=== PATIENT | male | born 1950 | race Caucasian/White ===

== ENCOUNTER 2016-06-25 13:56 | Emergency (ER) | payer OTHER ==
[~2016-06-25 13:56] MED LIST: ASPCH81X PO; GLIM1TAB2 PO; INSDGI SC; LISI2.5T5 PO; OMEP10CA2 PO; PREG1CAP34 PO; SIMV5TAB2 PO
[2016-06-25 14:14] VITALS: TEMP 36.4; Ht 179.1 cm
[2016-06-25] MEDS ORDERED: SODIUM CHLORIDE 0.9% 1000ML 1,000 ML IV STA (14:19)
[2016-06-25] MEDS ORDERED: CEFTRIAXONE SOD INJ 1 GM ADDVIAL IV STA (14:19)
[2016-06-25 14:46] LABS: BASO % 0.2 %; BASO ABS # 0.03 K/uL (0-0.2); COMPLETE YES; EOS % 0.1 %; HEMATOCRIT 47.8 % (42-52); IG% 0.4 %; LYMPH ABS # 0.97 K/uL (1.2-3.4); MEAN CELL VOLUME 87.2 fL (80-100); MEAN CORPUSCULAR HEMOGLOBIN 31.6 pg (25-34); MEAN CORPUSCULAR HGB CONC 36.2 g/dl (32-36); MEAN PLATELET VOLUME 11.2 fL (7.4-10.4); MONO % 7.5 %; NEUT % 85.8 %; PLATELET COUNT 184 K/uL (130-400); RED BLOOD COUNT 5.48 M/uL (4.7-6.1); WHITE BLOOD COUNT 16.24 K/uL (4.8-10.8)
[2016-06-25 14:59] LABS: PARTIAL THROMBOPLASTIN RATIO 1.1; PROTHROMBIN TIME (PATIENT) 10.9 SECONDS (9.0-12.0)
--- NOTE | 2016-06-25 15:00 | DIAGNOSTIC IMAGING REPORT ---
CHEST ONE VIEW PORTABLE CLINICAL HISTORY: Evaluate Fever/Sepsis dyspnea COMPARISON STUDY: 09/13/2015 FINDINGS: The bones soft tissues and hemidiaphragms are normal. The cardiomediastinal silhouette is normal. The lungs are clear. The pulmonary vasculature is normal. IMPRESSION: Negative chest. Electronically signed by: Timothy Strauss M.D. 06/25/2016 2:59 PM Dictated Date/Time: 06/25/2016 2:58 PM
[2016-06-25 15:06] LABS: ALT/SGPT 29 U/L (12-78); AST/SGOT 19 U/L (15-37); BLOOD UREA NITROGEN 28 mg/dl (7-18); BUN/CREATININE RATIO 18.6 (10-20); CALCIUM 9.1 mg/dl (8.5-10.1); CARBON DIOXIDE 27 mmol/L (21-32); CHLORIDE 100 mmol/L (98-107); GLUCOSE 127 mg/dl (70-99); POTASSIUM 3.7 mmol/L (3.5-5.1); SODIUM 136 mmol/L (136-145)
[2016-06-25 15:09] VITALS: O2SAT 98
[2016-06-25 15:11] LABS: ALKALINE PHOSPHATASE 67 U/L (45-117); CKMB/CK RATIO 1.2 (0-3.0)
[2016-06-25] MEDS ORDERED: ZOLP5TAB PO (15:35)
[2016-06-25] MEDS ORDERED: PRLSR20 PO (15:35)
[2016-06-25] MEDS ORDERED: INSDGIPEN SC (15:35)
[2016-06-25] MEDS ORDERED: GLIM4TAB PO (15:35)
[2016-06-25] MEDS ORDERED: CHOL1TAB42 PO (15:35)
[2016-06-25] MEDS ORDERED: NORT50CA PO (15:35)
[2016-06-25] MEDS ORDERED: PREG200C PO (15:35)
[2016-06-25] MEDS ORDERED: SIMV40TA2 PO (15:35)
[2016-06-25] MEDS ORDERED: ASPI81TA28 PO (15:35)
[2016-06-25] MEDS ORDERED: LISI-729 PO (15:35)
[2016-06-25 16:28] LABS: URINE APPEARANCE CLEAR (CLEAR); URINE COLOR DK YELLOW; URINE EPITHELIAL CELL AUTO >30 /lpf (0-5); URINE NITRITE NEG (NEG); URINE PH 6.5 (4.5-7.5); URINE SPECIFIC GRAVITY 1.031 (1.000-1.030); UROBILINOGEN NEG (NEG); ZZUR CULT IF INDIC CLEAN CATCH NO
[2016-06-25 16:30] LABS: MANUAL MICROSCOPIC REQUIRED? NO; REVIEW REQ? NO
[2016-06-25 16:31] LABS: URINE BILIRUBIN NEG (NEG)
[2016-06-25] MEDS ORDERED: GLC/500 PO (17:16)
[2016-06-25] MEDS ORDERED: ONDA4TAB10 SL (17:17)
--- NOTE | 2016-06-25 17:17 | EMERGENCY ROOM VISIT NOTE ---
History Report prepared by Jorge: Kimberley Brennan Under the Supervision of: Dr. Franki Carr D.O. First contact with patient: 14:12 Chief Complaint: ILLNESS Stated Complaint: ILLNESS History of Present Illness The patient is a 66 year old male who presents to the Emergency Room with complaints of resolved sickness starting this morning. He reports that he went to [employer] this morning and got his favorite meal, but was unable to eat all of it like he normally does. He was then outside pumping gas in the cold when began to get chills. When he got home he still felt chills and then he felt nauseous and vomited. He then began to feel too hot and diaphoretic. He went to the doctor's office where they found he was febrile, tachycardic, and hypoxic. He was referred to the ED. He received some fluids on the way here. He is currently feeling better. He has not taken anything for his fever. He denies any cough beyond his normal cough, abdominal pain, SOB, or rashes. He reports that he had felt no symptoms over the past few days. He has a history of diabetes. Source of History: patient Onset: this morning Position: other (global) Quality: other (sickness) Timing: resolved Associated Symptoms: + chills, + fevers, + nausea, + vomiting, No SOB, No abdominal pain, No cough, No rash Review of Systems See HPI for pertinent positives & negatives. A total of 10 systems reviewed and were otherwise negative. Past Medical & Surgical Medical Problems: (1) Anxiety (2) BPH (benign prostatic hypertrophy) (3) CKD (chronic kidney disease), stage II (4) Depression (5) Diabetes (6) Diabetic retinopathy (7) DM type 2 (diabetes mellitus, type 2) (8) Dyslipidemia (9) Emphysema, unspecified (10) GERD (gastroesophageal reflux disease) (11) H/o ischemic colitis (12) H/O ulcerative colitis (13) HTN (hypertension) (14) Hyperparathyroidism, secondary renal (15) Meniere's disease (16) HAYDE (obstructive sleep apnea) (17) Peripheral neuropathy (18) Sepsis Surgical Problems: (1) H/O hemorrhoidectomy (2) History of back surgery (3) History of carpal tunnel surgery (4) History of cataract surgery (5) S/P inguinal hernia repair (6) S/p removal of rectal stricture (7) S/P shoulder surgery (8) S/P tonsillectomy (9) S/P trigger finger release Family History Cancer FATHER ( of kidney CA) Diabetes mellitus BROTHER SISTER Heart disease BROTHER (UT in 40s) Hypertension MOTHER Social History Smoking Status: Former Smoker Alcohol Use: none Drug Use: none Marital Status: Housing Status: lives with family Occupation Status: disabled Current/Historical Medications Scheduled Aspirin (Aspirin Ec), 81 MG PO DAILY Cholecalciferol (Vitamin D), 5,000 UNIT PO DAILY Glimepiride (Amaryl), 4 MG PO BIDM Insulin Glargine (Lantus Solostar), 72 UNITS SC DAILY Lisinopril (Zestril), 5 MG PO DAILY Metformin Hcl (Glucophage), 500 MG PO BID Nortriptyline (Pamelor), 50 MG PO HS Omeprazole (Prilosec), 20 MG PO GMG Ondasetron Odt (Zofran Odt), 4 MG SL Q6H Pregabalin (Lyrica), 200 MG PO BID Simvastatin (Zocor), 40 MG PO QPM Scheduled PRN Zolpidem Tartrate (Ambien), 5 MG PO HS PRN for Sleep Allergies Coded Allergies: No Known Allergies (Unverified , 03/01/16) Physical Exam Vital Signs Date Time Temp Pulse Resp B/P Pulse Ox O2 Delivery O2 Flow Rate FiO2 06/25/16 16:30 123/86 06/25/16 16:26 98 20 94 06/25/16 16:00 99/73 06/25/16 15:56 105 15 97 06/25/16 15:52 96/70 06/25/16 15:27 109 20 104/68 96 Nasal Cannula 2.0 06/25/16 15:26 110 15 97 06/25/16 15:13 104/68 06/25/16 15:09 98 Nasal Cannula 2.0 06/25/16 14:56 117 27 95 06/25/16 14:26 122 21 95 06/25/16 14:14 36.4 123 20 104/79 91 Room Air 06/25/16 14:14 121 06/25/16 14:01 104/79 Physical Exam CONSTITUTIONAL/VITAL SIGNS: Reviewed / noted above. GENERAL: Non-toxic in appearance. INTEGUMENTARY: Warm, dry, and [place]. No obvious infection in extremities or feet. HEAD: Normocephalic. EYES: without scleral icterus or trauma. ENT/OROPHARYNX: clear and moist. LYMPHADENOPATHY/NECK: Is supple without lymphadenopathy or meningismus. RESPIRATORY: Lungs clear and equal. CARDIOVASCULAR: Regular rate and rhythm. GI/ABDOMEN: Soft and nontender. No organomegaly or pulsatile mass. No rebound or guarding. Normal bowel sounds. EXTREMITIES: Warm and well perfused. BACK: No CVA tenderness. NEUROLOGICAL: Intact without focal deficits. PSYCHIATRIC: normal affect. MUSCULOSKELETAL: Normally developed with good muscle tone. Medical Decision & Procedures ER Provider Diagnostic Interpretation: X ray results and stated below per my interpretation and radiology interpretation. CHEST ONE VIEW PORTABLE CLINICAL HISTORY: Evaluate Fever/Sepsis dyspnea COMPARISON STUDY: 09/13/2015 FINDINGS: The bones soft tissues and hemidiaphragms are normal. The cardiomediastinal silhouette is normal. The lungs are clear. The pulmonary vasculature is normal. IMPRESSION: Negative chest. Electronically signed by: Timothy Strauss M.D. 06/25/2016 2:59 PM Dictated Date/Time: 06/25/2016 2:58 PM Laboratory Results 06/25/16 14:30 Red Blood Count 5.48, Mean Corpuscular Volume 87.2, Mean Corpuscular Hemoglobin 31.6, Mean Corpuscular Hemoglobin Concent 36.2, Mean Platelet Volume 11.2, Neutrophils (%) (Auto) 85.8, Lymphocytes (%) (Auto) 6.0, Monocytes (%) (Auto) 7.5, Eosinophils (%) (Auto) 0.1, Basophils (%) (Auto) 0.2, Neutrophils # (Auto) 13.95, Lymphocytes # (Auto) 0.97, Monocytes # (Auto) 1.21, Eosinophils # (Auto) 0.02, Basophils # (Auto) 0.03 06/25/16 14:30 Test 06/25/16 14:30 06/25/16 15:00 06/25/16 15:55 White Blood Count 16.24 K/uL (4.8-10.8) Red Blood Count 5.48 M/uL (4.7-6.1) Hemoglobin 17.3 g/dL (14.0-18.0) Hematocrit 47.8 % (42-52) Mean Corpuscular Volume 87.2 fL (80-100) Mean Corpuscular Hemoglobin 31.6 pg (25-34) Mean Corpuscular Hemoglobin Concent 36.2 g/dl (32-36) Platelet Count 184 K/uL (130-400) Mean Platelet Volume 11.2 fL (7.4-10.4) Neutrophils (%) (Auto) 85.8 % Lymphocytes (%) (Auto) 6.0 % Monocytes (%) (Auto) 7.5 % Eosinophils (%) (Auto) 0.1 % Basophils (%) (Auto) 0.2 % Neutrophils # (Auto) 13.95 K/uL (1.4-6.5) Lymphocytes # (Auto) 0.97 K/uL (1.2-3.4) Monocytes # (Auto) 1.21 K/uL (0.11-0.59) Eosinophils # (Auto) 0.02 K/uL (0-0.5) Basophils # (Auto) 0.03 K/uL (0-0.2) RDW Standard Deviation 45.1 fL (36.4-46.3) RDW Coefficient of Variation 14.2 % (11.5-14.5) Immature Granulocyte % (Auto) 0.4 % Immature Granulocyte # (Auto) 0.06 K/uL (0.00-0.02) Prothrombin Time 10.9 SECONDS (9.0-12.0) Prothromb Time International Ratio 1.0 (0.9-1.1) Activated Partial Thromboplast Time 27.5 SECONDS (21.0-31.0) Partial Thromboplastin Ratio 1.1 Anion Gap 9.0 mmol/L (3-11) Estimated GFR () 56.2 Estimated GFR (Non- 48.5 BUN/Creatinine Ratio 18.6 (10-20) Calcium Level 9.1 mg/dl (8.5-10.1) Total Bilirubin 0.8 mg/dl (0.2-1) Direct Bilirubin 0.2 mg/dl (0-0.2) Aspartate Amino Transf (AST/SGOT) 19 U/L (15-37) Alanine Aminotransferase (ALT/SGPT) 29 U/L (12-78) Alkaline Phosphatase 67 U/L (45-117) Total Creatine Kinase 208 U/L (39-308) Creatine Kinase MB 2.4 ng/ml (0.5-3.6) Creatine Kinase MB Ratio 1.2 (0-3.0) Troponin I < 0.015 ng/ml (0-0.045) Total Protein 7.8 gm/dl (6.4-8.2) Albumin 4.0 gm/dl (3.4-5.0) Lipase 84 U/L (73-393) Influenza Type A Antigen Neg for Influ A (NEG) Influenza Type B Antigen Neg for Influ B (NEG) Lactic Acid Level 1.5 mmol/L (0.4-2.0) Urine Color DK YELLOW Urine Appearance CLEAR (CLEAR) Urine pH 6.5 (4.5-7.5) Urine Specific [place] 1.031 (1.000-1.030) Urine Protein 1+ (NEG) Urine Glucose (UA) NEG (NEG) Urine Ketones TRACE (NEG) Urine Occult Blood NEG (NEG) Urine Nitrite NEG (NEG) Urine Bilirubin NEG (NEG) Urine Urobilinogen NEG (NEG) Urine Leukocyte Esterase TRACE (NEG) Urine WBC (Auto) 1-5 /hpf (0-5) Urine RBC (Auto) 0-4 /hpf (0-4) Urine Hyaline Casts (Auto) 10-30 /lpf (0-5) Urine Epithelial Cells (Auto) >30 /lpf (0-5) Urine Bacteria (Auto) NEG (NEG) Laboratory results as stated above per my review. Medications Administered Medications (Trade) Dose Ordered Sig/Cyndee Route Start Time Stop Time Status Last Admin Dose Admin Sodium Chloride (Nss 1000ml) 1,000 ml @ 999 mls/hr Q1H1M STAT IV 06/25/16 14:19 06/25/16 15:19 DC 06/25/16 15:00 999 MLS/HR Ceftriaxone Sodium (Rocephin Inj) 1 gm NOW STAT IV 06/25/16 14:19 06/25/16 14:21 DC 06/25/16 15:01 1 GM ECG Indication: tachycardia Rate (beats per minute): 119 Rhythm: sinus tachycardia Findings: no ectopy, other (no acute injury) ED Course 1415: Previous medical records were reviewed. The patient was evaluated in room C5. A complete history and physical examination was performed. 1419: Rocephin Inj 1 gm IV, NSS 1000 ml @ 999 mls/hr IV. 1700: On reevaluation, the patient is resting comfortably. I discussed the results and findings with the patient. He verbalized agreement of the treatment plan. He was discharged home. Medical Decision Differential includes viral illness, influenza, streptococcal pharyngitis, meningitis, pneumonia, sinusitis, UTI, pyelonephritis, otitis media. This is a 66-year-old male who presents to the ED with a chief complaint of not feeling well this morning after eating at [employer]. The patient developed nausea and vomiting as well as some subjective fevers and chills. The patient states he developed vomiting. He went to his PCPs office and was told that he had a fever and his heart rate was tachycardic and he was sent here for evaluation. He reports a history of diabetes and COPD. His initial heart rate here was 122. He was afebrile. He did not receive antipyretics. EMS gave him some IV fluids and IV Zofran. He states that his symptoms did seem to improve after this. His workup here included a CBC which revealed white blood cell count of 16. His BUN is 28. The creatinine is 1.5. Lactate was negative. Troponin is negative. Urine did not show infection. Flu swab was negative. Chest x-ray did not show acute disease. An EKG showed a sinus tach with a rate of 119. The patient was reassessed. He is feeling better. He denies having any sort of symptoms that would explain a fever or white blood cell count. He appears dehydrated. He was given a liter of normal saline IV. His tachycardia improved. The patient will be discharged on Zofran. He was given empiric Rocephin but there is no clear infection at this time. He denies any abdominal pains. He denies any rashes and no abnormalities with regards to the skin was discovered on exam. He denies any headaches or upper respiratory symptoms. Denies shortness of breath. The patient is felt to be stable for discharge. Impression Primary Impression: Nausea & vomiting Additional Impression: Dehydration Scribe Attestation The scribe's documentation has been prepared under my direction and personally reviewed by me in its entirety. I confirm that the note above accurately reflects all work, treatment, procedures, and medical decision making performed by me. Departure Information Dispostion Home / Self-Care Prescriptions Ondasetron Odt (ZOFRAN ODT) 4 Mg Tab 4 MG SL Q6H for Nausea, #15 TAB Prov: Franki Carr D.O. 06/25/16 Referrals Bowen Narayan M.D. (PCP) Patient Instructions My [facility] Additional Instructions Zofran: Allow one tablet to dissolve under the tongue every 6 hours as needed for nausea or vomiting. Return to the ED or follow-up with PCP if symptoms persist or worsen. Drink plenty of fluids. Problem Qualifiers
[2016-06-25 17:47] VITALS: BP 91/65; PULSE 97; O2SAT 94
[2016-06-26] MEDS ORDERED: CEFD300C2 PO (17:35)
== END 2016-06-25 17:49 | disposition home or self-care (01) ==
LOC: EDBD 13:56 → C.EDC 13:59
DX: E86.0 Dehydration (principal); R11.2 Nausea with vomiting, unspecified; E11.319 Type 2 diabetes mellitus with unspecified diabetic retinopathy without macular edema; I12.9 Hypertensive chronic kidney disease with stage 1 through stage 4 chronic kidney disease, or unspecified chronic kidney disease; N18.2 Chronic kidney disease, stage 2 (mild); E78.5 Hyperlipidemia, unspecified; F32.9 Major depressive disorder, single episode, unspecified; F41.9 Anxiety disorder, unspecified; K21.9 Gastro-esophageal reflux disease without esophagitis; N25.81 Secondary hyperparathyroidism of renal origin; J43.9 Emphysema, unspecified; G47.33 Obstructive sleep apnea (adult) (pediatric); Z87.19 Personal history of other diseases of the digestive system; Z98.890 Other specified postprocedural states; Z87.891 Personal history of nicotine dependence; Z79.82 Long term (current) use of aspirin; Z79.84 Long term (current) use of oral hypoglycemic drugs; Z79.4 Long term (current) use of insulin; Z79.899 Other long term (current) drug therapy; Z80.9 Family history of malignant neoplasm, unspecified; Z83.3 Family history of diabetes mellitus; Z82.49 Family history of ischemic heart disease and other diseases of the circulatory system

== ENCOUNTER 2016-06-26 15:38 | Emergency (ER) | payer OTHER ==
[~2016-06-26] VITALS: Ht 179.1 cm; Wt 114.3 kg
[~2016-06-26 15:38] MED LIST changes: -ASPCH81X PO; +ASPI81TA28 PO; +CHOL1TAB42 PO; +GLC/500 PO; -GLIM1TAB2 PO; +GLIM4TAB PO; -INSDGI SC; +INSDGIPEN SC; +LISI-729 PO; -LISI2.5T5 PO; +NORT50CA PO; -OMEP10CA2 PO; +ONDA4TAB10 SL; -PREG1CAP34 PO; +PREG200C PO; +PRLSR20 PO; +SIMV40TA2 PO; -SIMV5TAB2 PO; +ZOLP5TAB PO
[2016-06-26 15:40] VITALS: Ht 179.1 cm; Wt 114.3 kg
[2016-06-26] MEDS ORDERED: SODIUM CHLORIDE 0.9% 1000ML 1,000 ML IV ONE (16:00)
--- NOTE | 2016-06-26 16:10 | EMERGENCY ROOM VISIT NOTE ---
History Report prepared by Jorge: Lukas Davidson Under the Supervision of: Dr. Rober Evans D.O. First contact with patient: 15:44 Chief Complaint: ABNORMAL LABS Stated Complaint: ABD PAIN,FEVER,ABNORMAL LABS History of Present Illness The patient is a 66 year old male who presents to the Emergency Room with complaints of sudden positive blood culture results beginning one day prior to arrival. He currently rates his discomfort as a 2/10 in severity. The patient associates a nausea, headache, fever, slight increase in urination, and lower abdominal pain with today's symptoms. He notes he was seen in the ED yesterday for his symptoms that began last night, and he was referred to the ED after receiving a call about his blood culture results. The patient states he originally had eaten a steak sandwich yesterday from [employer], which he has eaten before. He notes he had a difficult time eating his meal, which is unusual for him. The patient states he continued to run errands by getting a tank of propane. He notes he was outside for approximately five minutes and began to experience chills. The patient states he returned home and could not become warm for 30-45 minutes. He notes he then began to feel nauseous and experienced vomiting. The patient states he went to his PCP yesterday, in which , he had a fever of 102 F and was tachycardic, so the office called an ambulance to bring him to the ED. He notes he took acetaminophen 1.5-2 hours ago. The patient denies a sore throat, runny nose, rash, chest pain, and diarrhea. 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 A total of 10 systems reviewed and were otherwise negative. Past Medical & Surgical Medical Problems: (1) Anxiety (2) Bacteremia (3) BPH (benign prostatic hypertrophy) (4) CKD (chronic kidney disease), stage II (5) Depression (6) Diabetes (7) Diabetic retinopathy (8) DM type 2 (diabetes mellitus, type 2) (9) Dyslipidemia (10) Emphysema, unspecified (11) GERD (gastroesophageal reflux disease) (12) H/o ischemic colitis (13) H/O ulcerative colitis (14) HTN (hypertension) (15) Hyperparathyroidism, secondary renal (16) Meniere's disease (17) HAYDE (obstructive sleep apnea) (18) Peripheral neuropathy (19) Sepsis (20) Weakness Surgical Problems: (1) H/O hemorrhoidectomy (2) History of back surgery (3) History of carpal tunnel surgery (4) History of cataract surgery (5) S/P inguinal hernia repair (6) S/p removal of rectal stricture (7) S/P shoulder surgery (8) S/P tonsillectomy (9) S/P trigger finger release Family History Cancer FATHER ( of kidney CA) Diabetes mellitus BROTHER SISTER Heart disease BROTHER ([place] in 40s) Hypertension MOTHER Social History Smoking Status: Never Smoker Alcohol Use: none Drug Use: none Marital Status: Housing Status: lives with family Occupation Status: disabled Current/Historical Medications Scheduled Aspirin (Aspirin Ec), 81 MG PO DAILY Cefdinir (Omnicef), 300 MG PO Q12H Cholecalciferol (Vitamin D), 5,000 UNIT PO DAILY Glimepiride (Amaryl), 4 MG PO BIDM Insulin Glargine (Lantus Solostar), 72 UNITS SC DAILY Lisinopril (Zestril), 5 MG PO DAILY Metformin Hcl (Glucophage), 500 MG PO BID Nortriptyline (Pamelor), 50 MG PO HS Omeprazole (Prilosec), 20 MG PO GMG Ondasetron Odt (Zofran Odt), 4 MG SL Q6H Pregabalin (Lyrica), 200 MG PO BID Simvastatin (Zocor), 40 MG PO QPM Scheduled PRN Zolpidem Tartrate (Ambien), 5 MG PO HS PRN for Sleep Allergies Coded Allergies: No Known Allergies (Unverified , 06/26/16) Physical Exam Vital Signs Date Time Temp Pulse Resp B/P Pulse Ox O2 Delivery O2 Flow Rate FiO2 06/26/16 18:24 70 123/79 94 06/26/16 17:39 76 148/92 98 Room Air 06/26/16 17:01 96 Room Air 06/26/16 16:30 37.1 77 16 139/84 95 Room Air 06/26/16 16:28 94 Room Air 06/26/16 15:40 36.6 83 20 142/93 96 Room Air Physical Exam GENERAL: Patient is awake, alert, comfortable, and non-anxious appearing. EYES: The conjunctivae are clear. The pupils are round and reactive. EARS, NOSE, MOUTH AND THROAT: The nose is without any evidence of any deformity. Mucous membranes are moist tongue is midline NECK: The neck is nontender and supple. RESPIRATORY: Normal respiratory effort is noted there is no evidence of wheezing rhonchi or rales CARDIOVASCULAR: Regular rate and rhythm noted there no murmurs rubs or gallops normal S1 normal S2 GASTROINTESTINAL: The abdomen is mildly distended but soft. There was suprapubic and right lower quadrant tenderness to palpation. No guarding or rigidity. MUSCULOSKELETAL/EXTREMITIES: There is no evidence of gross deformity full range of motion is noted in the hips and shoulders SKIN: Trace pedal edema bilaterally. There is no obvious evidence of any rash. There are no petechiae, pallor or cyanosis noted. NEUROLOGIC: Patient is awake alert and oriented x3. Medical Decision & Procedures ER Provider Diagnostic Interpretation: Radiology results as stated below per my review and radiologist interpretation: CHEST ONE VIEW PORTABLE CLINICAL HISTORY: Sepsis. Abdominal pain. COMPARISON STUDY: Chest radiograph June 25, 2016. FINDINGS: The patient is rotated. Cardiac size is within normal limits. There is no consolidation to suggest pneumonia and there is no evidence of pulmonary edema. No pneumothorax or pleural effusion is identified. IMPRESSION: No acute cardiopulmonary findings. Electronically signed by: Bo Wynne M.D. 06/26/2016 4:[address] OF THE ABDOMEN AND PELVIS WITH CONTRAST CLINICAL HISTORY: Upper abdominal pain and fever. COMPARISON STUDY: None. TECHNIQUE: Following IV administration of 93 mL of Optiray-320, axial images of the abdomen and pelvis were obtained from the lung bases to the proximal femurs. Images were reviewed in the axial, sagittal, and coronal planes. IV contrast was administered without complication. CT DOSE: 1125.24 mGy.cm FINDINGS: Heart is at the upper limits of normal for size. There is a small hiatal hernia. Fatty infiltration of the liver is noted. There is no biliary or pancreatic ductal dilatation. There is no peripancreatic or pericholecystic infiltration. No hydronephrosis is present. A 6 mm hypodense lesion within the midpole of the left kidney is too small to characterize but is likely benign. There is mild symmetric bilateral perinephric infiltration. There is no evidence for a bowel obstruction. The caliber and wall thickness of small and large bowel are normal. The appendix is not visualized. There is a small fat-containing umbilical hernia. No suspicious osseous lesions are present. There are postsurgical findings within the lumbar spine. IMPRESSION: 1. Mild symmetric bilateral perinephric infiltration, a nonspecific finding which could be correlated with urinalysis. 2. Fatty liver. 3. No bowel obstruction. Electronically signed by: Bo Wynne M.D. 06/26/2016 5:09 PM Laboratory Results 06/26/16 16:10 Red Blood Count 4.35, Mean Corpuscular Volume 89.0, Mean Corpuscular Hemoglobin 30.3, Mean Corpuscular Hemoglobin Concent 34.1, Mean Platelet Volume 10.8, Neutrophils (%) (Auto) 70.0, Lymphocytes (%) (Auto) 20.1, Monocytes (%) (Auto) 6.7, Eosinophils (%) (Auto) 2.5, Basophils (%) (Auto) 0.3, Neutrophils # (Auto) 6.23, Lymphocytes # (Auto) 1.79, Monocytes # (Auto) 0.60, Eosinophils # (Auto) 0.22, Basophils # (Auto) 0.03 06/26/16 16:10 Test 06/26/16 16:10 06/26/16 16:17 06/26/16 16:21 06/26/16 16:30 White Blood Count 8.91 K/uL (4.8-10.8) Red Blood Count 4.35 M/uL (4.7-6.1) Hemoglobin 13.2 g/dL (14.0-18.0) Hematocrit 38.7 % (42-52) Mean Corpuscular Volume 89.0 fL (80-100) Mean Corpuscular Hemoglobin 30.3 pg (25-34) Mean Corpuscular Hemoglobin Concent 34.1 g/dl (32-36) Platelet Count 175 K/uL (130-400) Mean Platelet Volume 10.8 fL (7.4-10.4) Neutrophils (%) (Auto) 70.0 % Lymphocytes (%) (Auto) 20.1 % Monocytes (%) (Auto) 6.7 % Eosinophils (%) (Auto) 2.5 % Basophils (%) (Auto) 0.3 % Neutrophils # (Auto) 6.23 K/uL (1.4-6.5) Lymphocytes # (Auto) 1.79 K/uL (1.2-3.4) Monocytes # (Auto) 0.60 K/uL (0.11-0.59) Eosinophils # (Auto) 0.22 K/uL (0-0.5) Basophils # (Auto) 0.03 K/uL (0-0.2) RDW Standard Deviation 47.3 fL (36.4-46.3) RDW Coefficient of Variation 14.5 % (11.5-14.5) Immature Granulocyte % (Auto) 0.4 % Immature Granulocyte # (Auto) 0.04 K/uL (0.00-0.02) Erythrocyte Sedimentation Rate 25 mm/hr (0-14) Prothrombin Time 10.1 SECONDS (9.0-12.0) Prothromb Time International Ratio 0.9 (0.9-1.1) Activated Partial Thromboplast Time 31.5 SECONDS (21.0-31.0) Partial Thromboplastin Ratio 1.2 Est Creatinine Clear Calc Drug Dose 73.3 ml/min Estimated GFR () 66.8 Estimated GFR (Non- 57.7 BUN/Creatinine Ratio 17.9 (10-20) Calcium Level 8.7 mg/dl (8.5-10.1) Magnesium Level 1.9 mg/dl (1.8-2.4) Total Bilirubin 0.3 mg/dl (0.2-1) Aspartate Amino Transf (AST/SGOT) 17 U/L (15-37) Alanine Aminotransferase (ALT/SGPT) 22 U/L (12-78) Alkaline Phosphatase 66 U/L (45-117) C-Reactive Protein 14.40 mg/dl (0-0.29) Total Protein 6.6 gm/dl (6.4-8.2) Albumin 3.2 gm/dl (3.4-5.0) Globulin 3.4 gm/dl (2.5-4.0) Albumin/Globulin Ratio 0.9 (0.9-2) Bedside Lactic Acid Venous 0.96 mmol/L (0.90-1.70) Bedside Hemoglobin 12.9 g/dl (14.0-18.0) Bedside Hematocrit 38 % (42-52) Bedside Sodium 139 mEq/L (135-144) Bedside Potassium 4.2 mEq/L (3.3-5.0) Bedside Chloride 102 mEq/L (101-112) Bedside Total CO2 23 mEq/l (24-31) Anion Gap 19.0 mmol/L (16-25) Bedside Blood Urea Nitrogen 23 mg/dl (7-18) Bedside Creatinine 1.1 mg/dl (0.6-1.3) Bedside Glucose (other) 214 mg/dl (70-99) Bedside Ionized Calcium (Jewell) 1.21 mmol/l (1.12-1.32) Urine Color YELLOW Urine Appearance CLEAR (CLEAR) Urine pH 5.5 (4.5-7.5) Urine Specific [place] 1.016 (1.000-1.030) Urine Protein NEG (NEG) Urine Glucose (UA) 1+ (NEG) Urine Ketones NEG (NEG) Urine Occult Blood NEG (NEG) Urine Nitrite NEG (NEG) Urine Bilirubin NEG (NEG) Urine Urobilinogen NEG (NEG) Urine Leukocyte Esterase NEG (NEG) Urine WBC (Auto) 0 /hpf (0-5) Urine RBC (Auto) 0-4 /hpf (0-4) Urine Hyaline Casts (Auto) 0 /lpf (0-5) Urine Epithelial Cells (Auto) 5-10 /lpf (0-5) Urine Bacteria (Auto) NEG (NEG) Laboratory results per my review. Medications Administered Medications (Trade) Dose Ordered Sig/Cyndee Route Start Time Stop Time Status Last Admin Dose Admin Sodium Chloride (Nss 1000ml) 1,000 ml @ 999 mls/hr Q1H1M ONCE IV 06/26/16 16:00 06/26/16 17:00 DC 06/26/16 16:25 999 MLS/HR Ceftriaxone Sodium (Rocephin Inj) 1 gm NOW STAT IV 06/26/16 17:09 06/26/16 17:10 DC 06/26/16 17:36 1 GM ED Course 1550: The patient was evaluated in room A4B. A complete history and physical examination were performed. 1600: Ordered Sodium Chloride 1,000 ml @ 999 mls/hr IV. 1709: Ordered Rocephin Inj 1 gm IV. 1738: Upon reevaluation, the patient is doing well. I discussed the results and treatment plan with him. He verbalized agreement of the treatment plan. The patient was discharged home. Medical Decision Differential diagnosis: Etiologies such as viral syndrome, otitis, pharyngitis, pneumonia, influenza, meningitis, urinary tract infection, sepsis, bacteremia, as well as others were entertained. Nursing notes reviewed. Patient's previous electronic medical records reviewed. The patient is a 66-year-old male who presented to the emergency department at our request. The patient had a positive blood culture which could be a contaminant but he had a significant fever as well as an elevated white blood cell count when the culture was drawn. The patient had an improvement of his white blood cell count. No other source of infection could be found. He was treated previously with a dose of IV Rocephin so this was repeated here in the emergency department. He was also treated with IV fluids. He was encouraged to rest and avoid any strenuous activity. He was encouraged to follow-up with his family doctor soon as possible return to the emergency department immediately symptoms change worsen or the need arises. Impression Primary Impression: Fever Scribe Attestation The scribe's documentation has been prepared under my direction and personally reviewed by me in its entirety. I confirm that the note above accurately reflects all work, treatment, procedures, and medical decision making performed by me. Departure Information Dispostion Home / Self-Care Prescriptions Cefdinir (OMNICEF) 300 Mg Cap 300 MG PO Q12H, #14 CAP Prov: Rober Evans, 06/26/16 Referrals Bowen Narayan M.D. (PCP) Forms HOME CARE DOCUMENTATION FORM, IMPORTANT VISIT INFORMATION, WORK / SCHOOL INSTRUCTIONS Patient Instructions ED Fever Control, My [facility] Additional Instructions Continue using Motrin and Tylenol as directed for fever and body aches. Continue all medications as prescribed. Follow-up with your family for reevaluation. Return to the emergency department immediately if symptoms change worsen or the need arises. Problem Qualifiers Primary Impression: Fever Fever type: unspecified Qualified Codes: R50.9 - Fever, unspecified
[2016-06-26 16:28] VITALS: O2SAT 94
[2016-06-26 16:30] VITALS: TEMP 37.1
[2016-06-26 16:33] LABS: ISTAT CREATININE 1.1 mg/dl (0.6-1.3); ISTAT HEMOGLOBIN 12.9 g/dl (14.0-18.0); ISTAT IONIZED CALCIUM 1.21 mmol/l (1.12-1.32)
[2016-06-26 16:41] LABS: BUN/CREATININE RATIO 17.9 (10-20); C-REACTIVE PROTEIN 14.4 mg/dl (0-0.29); CALCIUM 8.7 mg/dl (8.5-10.1); CREATININE 1.3 mg/dl (0.60-1.40); MAGNESIUM 1.9 mg/dl (1.8-2.4); POTASSIUM 4.2 mmol/L (3.5-5.1)
[2016-06-26 16:43] LABS: BASO % 0.3 %; BASO ABS # 0.03 K/uL (0-0.2); COMPLETE YES; EOS % 2.5 %; HEMATOCRIT 38.7 % (42-52); IG% 0.4 %; LYMPH % 20.1 %; LYMPH ABS # 1.79 K/uL (1.2-3.4); MEAN CORPUSCULAR HEMOGLOBIN 30.3 pg (25-34); MEAN CORPUSCULAR HGB CONC 34.1 g/dl (32-36); MEAN PLATELET VOLUME 10.8 fL (7.4-10.4); MONO % 6.7 %; PLATELET COUNT 175 K/uL (130-400); RED BLOOD COUNT 4.35 M/uL (4.7-6.1); WHITE BLOOD COUNT 8.91 K/uL (4.8-10.8)
[2016-06-26 16:44] LABS: ALB/GLOB RATIO 0.9 (0.9-2)
[2016-06-26] MEDS ORDERED: OPTIRAY 320 IV PRN (16:45)
--- NOTE | 2016-06-26 16:45 | DIAGNOSTIC IMAGING REPORT ---
CHEST ONE VIEW PORTABLE CLINICAL HISTORY: Sepsis. Abdominal pain. COMPARISON STUDY: Chest radiograph June 25, 2016. FINDINGS: The patient is rotated. Cardiac size is within normal limits. There is no consolidation to suggest pneumonia and there is no evidence of pulmonary edema. No pneumothorax or pleural effusion is identified. IMPRESSION: No acute cardiopulmonary findings. Electronically signed by: Bo Wynne M.D. 06/26/2016 4:44 PM Dictated Date/Time: 06/26/2016 4:43 PM
[2016-06-26 16:50] LABS: URINE APPEARANCE CLEAR (CLEAR); URINE BILIRUBIN NEG (NEG); URINE COLOR YELLOW; URINE NITRITE NEG (NEG); URINE PH 5.5 (4.5-7.5); URINE SPECIFIC GRAVITY 1.016 (1.000-1.030); UROBILINOGEN NEG (NEG); ZZUR CULT IF INDIC CLEAN CATCH NO
[2016-06-26 16:51] LABS: INR 0.9 (0.9-1.1); PARTIAL THROMBOPLASTIN RATIO 1.2; PROTHROMBIN TIME (PATIENT) 10.1 SECONDS (9.0-12.0)
[2016-06-26 17:08] LABS: MANUAL MICROSCOPIC REQUIRED? NO; REVIEW REQ? NO
[2016-06-26] MEDS ORDERED: CEFTRIAXONE SOD INJ 1 GM ADDVIAL IV STA (17:09)
--- NOTE | 2016-06-26 17:11 | DIAGNOSTIC IMAGING REPORT ---
CT OF THE ABDOMEN AND PELVIS WITH CONTRAST CLINICAL HISTORY: Upper abdominal pain and fever. COMPARISON STUDY: None. TECHNIQUE: Following IV administration of 93 mL of Optiray-320, axial images of the abdomen and pelvis were obtained from the lung bases to the proximal femurs. Images were reviewed in the axial, sagittal, and coronal planes. IV contrast was administered without complication. CT DOSE: 1125.24 mGy.cm FINDINGS: Heart is at the upper limits of normal for size. There is a small hiatal hernia. Fatty infiltration of the liver is noted. There is no biliary or pancreatic ductal dilatation. There is no peripancreatic or pericholecystic infiltration. No hydronephrosis is present. A 6 mm hypodense lesion within the midpole of the left kidney is too small to characterize but is likely benign. There is mild symmetric bilateral perinephric infiltration. There is no evidence for a bowel obstruction. The caliber and wall thickness of small and large bowel are normal. The appendix is not visualized. There is a small fat-containing umbilical hernia. No suspicious osseous lesions are present. There are postsurgical findings within the lumbar spine. IMPRESSION: 1. Mild symmetric bilateral perinephric infiltration, a nonspecific finding which could be correlated with urinalysis. 2. Fatty liver. 3. No bowel obstruction. Electronically signed by: Bo Wynne M.D. 06/26/2016 5:09 PM Dictated Date/Time: 06/26/2016 4:59 PM
[2016-06-26] MEDS ORDERED: CEFD300C2 PO (17:35)
[2016-06-26 18:24] VITALS: BP 123/79; PULSE 70; O2SAT 94
== END 2016-06-26 18:25 | disposition home or self-care (01) ==
LOC: C.EDB 15:39 → C.EDA 18:25
DX: R50.9 Fever, unspecified (principal); N40.0 Benign prostatic hyperplasia without lower urinary tract symptoms; N18.2 Chronic kidney disease, stage 2 (mild); E11.9 Type 2 diabetes mellitus without complications; E78.5 Hyperlipidemia, unspecified; I10 Essential (primary) hypertension; H81.09 Meniere's disease, unspecified ear; G47.33 Obstructive sleep apnea (adult) (pediatric); K21.9 Gastro-esophageal reflux disease without esophagitis; Z79.82 Long term (current) use of aspirin; Z83.3 Family history of diabetes mellitus; Z82.49 Family history of ischemic heart disease and other diseases of the circulatory system

== ENCOUNTER 2016-06-27 04:51 | Inpatient (IN) | payer OTHER ==
[~2016-06-27] VITALS: Ht 177.8 cm; Wt 110.1 kg
[~2016-06-27 04:51] MED LIST changes: +CEFD300C2 PO
[2016-06-27] MEDS ORDERED: SODIUM CHLORIDE 0.9% 1000ML 500 ML IV STA (05:06)
[2016-06-27] MEDS ORDERED: SODIUM CHLORIDE 0.9% 1000ML 1,000 ML IV STA (05:06)
[2016-06-27] MEDS ORDERED: ONDANSETRON INJ 2 MG/ML 2 ML VIAL IV STA (05:06)
--- NOTE | 2016-06-27 05:17 | EMERGENCY ROOM VISIT NOTE ---
History Report prepared by Jorge: Jersey Chen Under the Supervision of: Dr. Rashaad Sawyer M.D. First contact with patient: 05:01 Chief Complaint: ABDOMINAL PAIN Stated Complaint: WEAK,ABDOMINAL PAIN,CAN'T EAT-GOTTEN WORSE Nursing Triage Summary: patient seen here Tuesday and then told to return yesterday after + BC results. did new blood work and sent pt home again. States, "I feel worse tonight. I have pains across the stomach. I don't know what they were. I slept very little tonight...Bending over made me feel all the worse." pt reports some dizziness and continued nausea. denies vomiting. pt has been on clear liquid diet and some crackers for 2 days. History of Present Illness The patient is a 66 year old male who presents to the Emergency Room with complaints of worsening abdominal pain that began two days ago. The patient was seen in the ED twice in the past two days: Once two days ago, and once 1 day ago. His white blood cell count on the was 16 and 8 on the . His chemistry panels were unrevealing. His influenza test was negative. On the , he had 1 blood culture that was positive for gram positive cocci--this is why he came to the ED yesterday. He has had two negative chest x-rays. He had a CT abdomen and pelvis on the that showed perinephric infiltration of unknown significance. His urinalysis from the did not suggest evidence for infection. On the , he was diagnosed with nausea and vomiting and given Zofran. On the , he was diagnosed with a fever and placed on Omnicef. He states that after he left the hospital yesterday, he worsened. He denies any trouble urinating or passing stool. He notes that he is feeling much weaker and lightheaded. He denies any vomiting today as well. Source of History: patient Onset: today Position: abdomen Symptom Intensity: moderate Quality: other (shooting) Timing: worsening Associated Symptoms: + weakness, No diarrhea, No hematochezia, No melena, No urinary symptoms, No vomiting Note: He feels lightheaded. Review of Systems See HPI for pertinent positives & negatives. A total of 10 systems reviewed and were otherwise negative. Past Medical & Surgical Medical Problems: (1) Anxiety (2) Bacteremia (3) BPH (benign prostatic hypertrophy) (4) CKD (chronic kidney disease), stage II (5) Depression (6) Diabetes (7) Diabetic retinopathy (8) DM type 2 (diabetes mellitus, type 2) (9) Dyslipidemia (10) Emphysema, unspecified (11) GERD (gastroesophageal reflux disease) (12) H/o ischemic colitis (13) H/O ulcerative colitis (14) HTN (hypertension) (15) Hyperparathyroidism, secondary renal (16) Meniere's disease (17) HAYDE (obstructive sleep apnea) (18) Peripheral neuropathy (19) Sepsis (20) Weakness Surgical Problems: (1) H/O hemorrhoidectomy (2) History of back surgery (3) History of carpal tunnel surgery (4) History of cataract surgery (5) S/P inguinal hernia repair (6) S/p removal of rectal stricture (7) S/P shoulder surgery (8) S/P tonsillectomy (9) S/P trigger finger release Family History Cancer FATHER ( of kidney CA) Diabetes mellitus BROTHER SISTER Heart disease BROTHER ([place] in 40s) Hypertension MOTHER Social History Smoking Status: Never Smoker Alcohol Use: none Drug Use: none Marital Status: Housing Status: lives with family Occupation Status: disabled Current/Historical Medications Scheduled Aspirin (Aspirin Ec), 81 MG PO DAILY Cefdinir (Omnicef), 300 MG PO Q12H Cholecalciferol (Vitamin D), 5,000 UNIT PO DAILY Glimepiride (Amaryl), 4 MG PO BIDM Insulin Glargine (Lantus Solostar), 72 UNITS SC DAILY Lisinopril (Zestril), 5 MG PO DAILY Metformin Hcl (Glucophage), 500 MG PO BID Nortriptyline (Pamelor), 50 MG PO HS Omeprazole (Prilosec), 20 MG PO GMG Ondasetron Odt (Zofran Odt), 4 MG SL Q6H Pregabalin (Lyrica), 200 MG PO BID Simvastatin (Zocor), 40 MG PO QPM Scheduled PRN Zolpidem Tartrate (Ambien), 5 MG PO HS PRN for Sleep Allergies Coded Allergies: No Known Allergies (Unverified , 06/26/16) Physical Exam Vital Signs Date Time Temp Pulse Resp B/P Pulse Ox O2 Delivery O2 Flow Rate FiO2 4/2/17 07:33 65 20 144/98 96 Room Air 06/27/16 07:15 96 Room Air 06/27/16 07:00 63 18 146/93 91 Room Air 06/27/16 05:35 36.6 62 20 153/97 96 Room Air 06/27/16 04:53 36.6 70 18 171/105 98 Room Air Physical Exam GENERAL: Patient is in no acute distress. HEENT: No acute trauma, normocephalic atraumatic, mucous membranes moist, no nasal congestion, no scleral icterus. NECK: No stridor, no adenopathy, no meningismus, trachea is midline. LUNGS: Clear to auscultation bilaterally, no wheeze, no rhonchi, breath sounds equal. HEART: Without murmurs gallops or rubs, regular rate and rhythm. ABDOMEN: Soft, bilateral lower quadrant discomfort with palpation, bowel sounds positive, no hernias, no peritonitis. EXTREMITIES: No cyanosis or edema, full range of motion of all the joints without pain or difficulty, no signs for acute trauma. NEUROLOGIC: Oriented x 3, no acute motor or sensory deficits, no focal weakness. SKIN: No rash, no jaundice, no diaphoresis. Medical Decision & Procedures Laboratory Results 06/27/16 05:23 Red Blood Count 4.48, Mean Corpuscular Volume 87.5, Mean Corpuscular Hemoglobin 30.8, Mean Corpuscular Hemoglobin Concent 35.2, Mean Platelet Volume 10.4, Neutrophils (%) (Auto) 62.8, Lymphocytes (%) (Auto) 25.5, Monocytes (%) (Auto) 7.4, Eosinophils (%) (Auto) 3.2, Basophils (%) (Auto) 0.5, Neutrophils # (Auto) 3.92, Lymphocytes # (Auto) 1.59, Monocytes # (Auto) 0.46, Eosinophils # (Auto) 0.20, Basophils # (Auto) 0.03 06/27/16 05:23 Test 06/27/16 05:23 06/27/16 05:25 White Blood Count 6.24 K/uL (4.8-10.8) Red Blood Count 4.48 M/uL (4.7-6.1) Hemoglobin 13.8 g/dL (14.0-18.0) Hematocrit 39.2 % (42-52) Mean Corpuscular Volume 87.5 fL (80-100) Mean Corpuscular Hemoglobin 30.8 pg (25-34) Mean Corpuscular Hemoglobin Concent 35.2 g/dl (32-36) Platelet Count 182 K/uL (130-400) Mean Platelet Volume 10.4 fL (7.4-10.4) Neutrophils (%) (Auto) 62.8 % Lymphocytes (%) (Auto) 25.5 % Monocytes (%) (Auto) 7.4 % Eosinophils (%) (Auto) 3.2 % Basophils (%) (Auto) 0.5 % Neutrophils # (Auto) 3.92 K/uL (1.4-6.5) Lymphocytes # (Auto) 1.59 K/uL (1.2-3.4) Monocytes # (Auto) 0.46 K/uL (0.11-0.59) Eosinophils # (Auto) 0.20 K/uL (0-0.5) Basophils # (Auto) 0.03 K/uL (0-0.2) RDW Standard Deviation 46.4 fL (36.4-46.3) RDW Coefficient of Variation 14.4 % (11.5-14.5) Immature Granulocyte % (Auto) 0.6 % Immature Granulocyte # (Auto) 0.04 K/uL (0.00-0.02) Anion Gap 4.0 mmol/L (3-11) Est Creatinine Clear Calc Drug Dose 72.6 ml/min Estimated GFR () 66.8 Estimated GFR (Non- 57.7 BUN/Creatinine Ratio 12.7 (10-20) Lactic Acid Level 0.9 mmol/L (0.4-2.0) Calcium Level 8.8 mg/dl (8.5-10.1) Total Bilirubin 0.3 mg/dl (0.2-1) Aspartate Amino Transf (AST/SGOT) 20 U/L (15-37) Alanine Aminotransferase (ALT/SGPT) 25 U/L (12-78) Alkaline Phosphatase 50 U/L (45-117) Troponin I < 0.015 ng/ml (0-0.045) Total Protein 7.0 gm/dl (6.4-8.2) Albumin 3.3 gm/dl (3.4-5.0) Globulin 3.7 gm/dl (2.5-4.0) Albumin/Globulin Ratio 0.9 (0.9-2) Lipase 110 U/L (73-393) Urine Color YELLOW Urine Appearance CLEAR (CLEAR) Urine pH 6.0 (4.5-7.5) Urine Specific C[place]ield 1.009 (1.000-1.030) Urine Protein NEG (NEG) Urine Glucose (UA) NEG (NEG) Urine Ketones NEG (NEG) Urine Occult Blood NEG (NEG) Urine Nitrite NEG (NEG) Urine Bilirubin NEG (NEG) Urine Urobilinogen NEG (NEG) Urine Leukocyte Esterase NEG (NEG) Laboratory results reviewed by me. Medications Administered Medications (Trade) Dose Ordered Sig/Cyndee Route Start Time Stop Time Status Last Admin Dose Admin Sodium Chloride (Nss 1000ml) 500 ml @ 999 mls/hr Q31M STAT IV 06/27/16 05:06 06/27/16 05:36 DC 06/27/16 05:33 999 MLS/HR Ondansetron HCl 4 mg 4 mg NOW STAT IV 06/27/16 05:06 06/27/16 05:10 DC 06/27/16 05:33 4 MG Sodium Chloride (Nss 1000ml) 1,000 ml @ 200 mls/hr Q5H STAT IV 06/27/16 05:06 06/27/16 10:05 DC 06/27/16 05:33 200 MLS/HR Morphine Sulfate (MoRPHine SULFATE INJ) 4 mg Q15M PRN IV 06/27/16 06:15 07/11/16 06:14 06/27/16 06:23 4 MG Ceftriaxone Sodium 1 gm 1 gm NOW STAT IV 06/27/16 06:45 06/27/16 06:46 DC 06/27/16 07:14 1 GM Sodium Chloride (Nss 1000ml) 1,000 ml @ 100 mls/hr Q10H IV 06/27/16 08:01 07/27/16 08:00 06/27/16 12:11 100 MLS/HR Acetaminophen (Tylenol Tab) 650 mg Q4H PRN PO 06/27/16 08:15 07/27/16 08:14 06/27/16 11:50 650 MG Al Hydrox/Mg Hydrox/Simethicone (Maalox Max Susp) 15 ml Q4H PRN PO 06/27/16 08:15 5/2/17 08:14 06/27/16 12:42 15 ML Ondansetron HCl (Zofran Inj) 4 mg Q6H PRN IV 06/27/16 08:15 07/27/16 08:14 06/27/16 11:05 4 MG ECG Indication: abdominal pain Rate (beats per minute): 61 Rhythm: normal sinus Findings: LBBB (incomplete), no acute ischemic change, no ectopy ED Course 0501: The patient was evaluated in room B10. A complete history and physical exam was performed. 0506: Ordered Sodium Chloride 1000 ml @ 200 mls/hr IV, Zofran Inj 4 mg IV, Sodium Chloride 500 ml @ 999 mls/hr IV 0615: Ordered Morphine Sulfate 4 mg IV 0645: Ordered Rocephin Inj 1 gm IV 0650: Upon reexamination the patient is resting. I discussed results and treatment plan with the patient. He verbalizes agreement and understanding. The patient will be evaluated by Dr. Yue Tran, for further management. Medical Decision Differential diagnosis includes but is not limited to diverticulitis, bacteremia , sepsis, UTI, pyelonephritis, viral illness, dehydration, and renal failure. There is no leukocytosis or concerning anemia. No significant electrolyte abnormality, kidney failure, hepatitis or pancreatitis. Urinalysis does not show infection. Lactic acid level is not elevated making sepsis and bowel ischemia less likely. EKG showed a sinus rhythm, no acute ischemia. On exam, the patient was not febrile or toxic. The patient was given IV saline, IV Zofran and IV morphine. He was given IV ceftriaxone for the previous positive blood culture. The patient has been here 3 times in 3 days. It does appear that his white count is improving. On CT from a previous visit, there was evidence for some perinephric stranding of unknown significance. He does not feel well and is not doing well as an outpatient. I do think care in the hospital would be warranted. I cannot explain his entire presentation. His illness may be viral , he may have bacteremia. Hospital care is required. I spoke to the patient and case management. The on-call hospitalist was consulted. Consults Time Called: 0645 Consulting Physician: Dr. Yue Tran Returned Call: 0650 He will be evaluating the patient for further management. Impression Primary Impression: Weakness Additional Impressions: Fever Lower abdominal pain Positive blood cultures Scribe Attestation The scribe's documentation has been prepared under my direction and personally reviewed by me in its entirety. I confirm that the note above accurately reflects all work, treatment, procedures, and medical decision making performed by me. Departure Information Dispostion Being Evaluated By Hospitalist Referrals Bowen Narayan M.D. (PCP) Patient Instructions My [facility] Problem Qualifiers
[2016-06-27 05:51] LABS: URINE APPEARANCE CLEAR (CLEAR); URINE BILIRUBIN NEG (NEG); URINE COLOR YELLOW; URINE NITRITE NEG (NEG); URINE SPECIFIC GRAVITY 1.009 (1.000-1.030); UROBILINOGEN NEG (NEG); ZZUR CULT IF INDIC CLEAN CATCH NO
[2016-06-27 05:54] LABS: MANUAL MICROSCOPIC REQUIRED? NO; REVIEW REQ? NO
[2016-06-27 05:54] LABS: BASO % 0.5 %; BASO ABS # 0.03 K/uL (0-0.2); COMPLETE YES; EOS % 3.2 %; HEMATOCRIT 39.2 % (42-52); IG% 0.6 %; LYMPH % 25.5 %; LYMPH ABS # 1.59 K/uL (1.2-3.4); MEAN CELL VOLUME 87.5 fL (80-100); MEAN CORPUSCULAR HEMOGLOBIN 30.8 pg (25-34); MEAN CORPUSCULAR HGB CONC 35.2 g/dl (32-36); MEAN PLATELET VOLUME 10.4 fL (7.4-10.4); MONO % 7.4 %; NEUT % 62.8 %; PLATELET COUNT 182 K/uL (130-400); RED BLOOD COUNT 4.48 M/uL (4.7-6.1); WHITE BLOOD COUNT 6.24 K/uL (4.8-10.8)
[2016-06-27 06:01] LABS: ALT/SGPT 25 U/L (12-78); AST/SGOT 20 U/L (15-37); BLOOD UREA NITROGEN 17 mg/dl (7-18); BUN/CREATININE RATIO 12.7 (10-20); CALCIUM 8.8 mg/dl (8.5-10.1); CARBON DIOXIDE 30 mmol/L (21-32); CHLORIDE 107 mmol/L (98-107); GLUCOSE 151 mg/dl (70-99); POTASSIUM 4.2 mmol/L (3.5-5.1); SODIUM 141 mmol/L (136-145)
[2016-06-27 06:06] LABS: ALB/GLOB RATIO 0.9 (0.9-2); ALKALINE PHOSPHATASE 50 U/L (45-117)
[2016-06-27] MEDS ORDERED: MoRPHine SULFATE 4 MG/ML 1 ML CARP\\VIAL IV PRN (06:15)
[2016-06-27] MEDS ORDERED: CEFTRIAXONE SOD INJ 1 GM ADDVIAL IV STA (06:45)
[2016-06-27 07:15] VITALS: O2SAT 96; Ht 177.8 cm; Wt 110.1 kg
[2016-06-27] MEDS ORDERED: ZOLPIDEM TARTRATE 5 MG TAB PO PRN (08:15)
[2016-06-27] MEDS ORDERED: ALUMINUM/MAGNESIUM/SIMETH (MAALOX MAX) 30 ML UDC PO PRN (08:15)
[2016-06-27] MEDS ORDERED: MAGNESIUM HYDROXIDE SUSP 30 ML UDC PO PRN (08:15)
[2016-06-27] MEDS ORDERED: NITROGLYCERIN 0.4 MG SL PER TAB CHARGE SL PRN (08:15)
[2016-06-27] MEDS ORDERED: INSULIN GLARGINE SOLOSTAR 100 UNITS/ML 3 ML PEN SC SCH (09:00)
[2016-06-27] MEDS ORDERED: VANCOMYCIN CONSULT ACTIVE PRN (09:15)
[2016-06-27] MEDS ORDERED: VANCOMYCIN INJ 2,750 MG in SODIUM CHLORIDE 0.9% 500ML 500 ML IV ONE (09:30)
--- NOTE | 2016-06-27 10:04 | DIAGNOSTIC IMAGING REPORT ---
ABDOMEN 2VIEW W/PA CHEST RTN CLINICAL HISTORY: Lower abdominal pain. COMPARISON STUDY: 06/26/2016 FINDINGS: The erect chest reveals no free air. There is mild interstitial thickening.] Supine views the abdomen reveal postsurgical changes of the lumbar spine. There is a thoracolumbar scoliosis. There is scattered stool within the right colon. There are no abnormally dilated loops of large or small bowel. There are no transition zones indicate bowel obstruction. There are no calcification suspicious for renal calculi. IMPRESSION: No evidence of bowel obstruction. No evidence of free air. Electronically signed by: Chris Hayes M.D. 06/27/2016 10:03 AM Dictated Date/Time: 06/27/2016 10:02 AM
[2016-06-27 11:02] VITALS: BP 150/89; PULSE 61; TEMP 36.7; O2SAT 94
[2016-06-27] MEDS: ONDANSETRON INJ 2 MG/ML 2 ML VIAL IV PRN ×2 (11:05→17:39)
--- NOTE | 2016-06-27 11:06 | HISTORY & PHYSICAL EXAMINATION ---
DATE OF ADMISSION: 06/27/2016 CHIEF COMPLAINT: Fever and abdominal pain. HISTORY OF PRESENT ILLNESS: This is a 66-year-old male with past medical history significant for diabetes, hypertension, hyperlipidemia, COPD, past tobacco abuse, history of diabetic neuropathy, chronic kidney disease, baseline creatinine around 1.3, presents with fever and abdominal pain. The patient says last Wali he had nausea, vomiting and chills and fever. He went to see his primary care physician and was sent to the ER, where blood cultures were drawn and his blood workup was negative and he was discharged home and the next day he was was not feeling well when he came to the ER.One of the blood cultures draw the day prior was positive for gm positive cocci. He was francisco having abdominal pain. CT of the abdomen and pelvis was done which shows some nonspecific bilateral perinephric infiltrates. The patient was placed on Omnicef and discharged home, but comes back again because of feeling generalized weakness and increased lower abdominal pain, was nauseous but no vomiting, no diarrhea, no constipation. Normal bowel movement yesterday. Denies any chest pain, no shortness of breath, chronic cough. Has some mild headaches. He has some mild neck pain, but is able to move his neck. Currently, resting comfortably and hemodynamically stable. ALLERGIES: No known drug allergies. PAST MEDICAL HISTORY: As mentioned above. PAST SURGICAL HISTORY: Rectal stricture, foot surgery, appendectomy, hemorrhoidectomy, cataract surgery, carpal tunnel surgery, and back surgery. FAMILY HISTORY: Significant for diabetes. SOCIAL HISTORY: Past tobacco use several years ago. No alcohol and on disability. REVIEW OF SYSTEMS: As per HPI. Rest of review of systems negative. MEDICATIONS: The patient currently on glimepiride 4 mg p.o. b.i.d., metformin 500 mg p.o. b.i.d., Zofran 4 mg p.o. sublingual q. 6 hours p.r.n., Omnicef 300 mg p.o. q. 12 hours, aspirin 81 mg p.o. daily, vitamin D 5000 units p.o. daily, insulin Lantus 72 units daily, lisinopril 5 mg p.o. daily, nortriptyline 50 mg p.o. at bedtime, Omeprazole 20 mg p.o. daily, Lyrica 200 mg p.o. b.i.d., simvastatin 40 mg p.o. q.p.m., Ambien 5 mg p.o. at bedtime p.r.n. PHYSICAL EXAMINATION: GENERAL: The patient is of moderate built, not in distress. VITAL SIGNS: Temperature 36.6, pulse 65, respiratory rate 20, blood pressure 144/92, oxygen 96% room air. HEENT: No pallor, no icterus. Pupils equal, round, and reactive to light. Oral mucosa dry. NECK: No JVD or neck masses, no carotid bruits. CARDIOVASCULAR: S1, S2 heard, regular rate and rhythm, no murmur, no gallop. RESPIRATORY SYSTEM: Normal AP diameter. No accessory muscle use. No wheezing, no crackles. ABDOMEN: Soft, bowel sounds present. Some tenderness in the left lower quadrant and hypogastric region. No guarding, no rigidity. CENTRAL NERVOUS SYSTEM: Cranial nerves II-XII are grossly intact. Nonfocal. EXTREMITIES: No edema, no erythema. LABORATORY DATA: WBC 6.2, hemoglobin 13.8, hematocrit 39.2 platelets 182. Sodium 141, potassium 4.2, chloride 107, CO2 30, BUN 17, creatinine 1.3, serum glucose 151. Lactic acid 0.9, calcium 8.8, total bilirubin 0.3, AST 20, ALT 25, alkaline phosphatase 50. Troponin I less than 0.015. Lipase 110. Urinalysis negative. IMAGING DATA: CT scan of the abdomen and pelvis done with contrast yesterday shows mild asymmetric bilateral perinephric infiltration, and nonspecific findings , no bowel obstruction. Chest x-ray done yesterday on 06/26/2016 - no acute cardiopulmonary findings. EKG shows normal sinus rhythm with sinus arrhythmia at a rate of 61, incomplete bundle branch block, no acute ST changes seen. ASSESSMENT AND PLAN: This is a 66-year-old male presents with recent fever and abdominal pain. Fever. Currently afebrile. The blood cultures done on 06/25/2016 showing gram positive cocci. The patient has generalized weakness. Not feeling good. We will empirically start him on IV vancomycin and IV Rocephin. Urinalysis negative but as the recent CAT scan showed nonspecific perinephric infiltration Will get a renal ultrasound and follow the cultures. Monitor on the tele floor. 2. Abdominal pain. CAT scan with contrast done yesterday showed bilateral mild perinephric infiltrates, otherwise negative study. We will get a abdominal x ray. pain control and monitor with antibiotics as above. 3. Diabetes. Hold home oral p.o. meds. Continue his Lantus and place him on insulin sliding scale. Monitor his blood sugars. 4. Hypertension. Continue his lisinopril. 5. Hyperlipidemia. Continue statin. 6. Chronic obstructive pulmonary disease, currently stable. 7. Deep vein thrombosis prophylaxis, sequential compression devices and TEDs for now. 8. Disposition: Admit to tele floor. Expect to discharge home and follow with his family doctor. KRISTA
[2016-06-27] MEDS: MoRPHine SULFATE 2 MG/ML CARP IV PRN ×2 (11:08→15:49)
[2016-06-27] MEDS: ACETAMINOPHEN 325 MG TAB PO PRN (11:50)
[2016-06-27 12:00] VITALS: O2SAT 94
[2016-06-27] MEDS: INSULIN ASPART 100 UNITS/ML 3 ML PEN SC SCH ×3 (12:10→20:12)
[2016-06-27] MEDS: ASPIRIN 81 MG ECTAB PO SCH (12:11)
[2016-06-27] MEDS: INSULIN GLARGINE SOLOSTAR 100 UNITS/ML 3 ML PEN SC SCH (12:11)
[2016-06-27] MEDS: PREGABALIN 100 MG CAP PO SCH ×2 (12:11→20:23)
[2016-06-27] MEDS: CHOLECALCIFEROL 1000 INTER.UNIT TAB PO SCH (12:11)
[2016-06-27] MEDS: SODIUM CHLORIDE 0.9% 1000ML 1,000 ML IV SCH ×2 (12:11→19:20)
[2016-06-27] MEDS: LISINOPRIL 5 MG TAB PO SCH (12:12)
--- NOTE | 2016-06-27 13:36 | Pharmacy Progress Note ---
Pharmacy Antibiotic Consult Date of Service: Jun 27, 2016. Pharmacy Dosing Scope Pharmacy is consulted to initiate vancomycin IV dosing therapy, order appropriate labs and adjust drug dose/frequency. Subjective The patient is a 66 year old male admitted on Jun 27, 2016 at 08:19 with a positive blood culture from 06/25/16 (1 of 2 blood cultures) plus a history of abdominal pain and fatigue. Objective Height (Feet): 5 Height (Inches): 10.00 Weight (Kilograms): 114.000 Lab Results (24hrs): Laboratory Tests Test 06/27/16 05:23 BUN/Creatinine Ratio 12.7 Blood Urea Nitrogen 17 mg/dl Creatinine 1.30 mg/dl White Blood Count 6.24 K/uL Red Blood Count 4.48 M/uL Hemoglobin 13.8 g/dL Hematocrit 39.2 % Mean Corpuscular Volume 87.5 fL Mean Corpuscular Hemoglobin 30.8 pg Mean Corpuscular Hemoglobin Concent 35.2 g/dl Platelet Count 182 K/uL Mean Platelet Volume 10.4 fL Neutrophils (%) (Auto) 62.8 % Lymphocytes (%) (Auto) 25.5 % Monocytes (%) (Auto) 7.4 % Eosinophils (%) (Auto) 3.2 % Basophils (%) (Auto) 0.5 % Neutrophils # (Auto) 3.92 K/uL Lymphocytes # (Auto) 1.59 K/uL Monocytes # (Auto) 0.46 K/uL Eosinophils # (Auto) 0.20 K/uL Basophils # (Auto) 0.03 K/uL Micro Results: RUN DATE: 06/27/16 [facility] LAB PAGE 1 RUN TIME: 908 Specimen Inquiry PATIENT: JANINA MELENDREZ LOC: [facility] U # : [id number] AGE/SX: 66/M ROOM: REG : 06/25/[address]: Franki Carr D.O. : 1950 BED: DIS : STATUS: DEP [place] TLOC: SPEC #: [id number] JENNIFER: 06/25/16-1454 STATUS: RES REQ #: [id number] RECD: 06/25/16-[address]: Franki Carr D.O. SOURCE: BLOOD ENTR: 06/25/16-[address] [facility] [address]: Bowen Narayan M.D. [facility]: ORDERED: BLOOD CULTURE COMMENTS: Comments to Pigment Pumper SAME TIME DIFFERENT SITES Procedure Result Verified Site BLD CULT Preliminary 06/27/16-0909 Organism 1 COAG NEG STAPH NOT LUGDUNENSIS SENS NO SENSITIVITY TO FOLLOW Phoned Positive Blood Culture Gram Stain Report to [facility] ED on 06/26/16 At 1421 By CELESTE. Results were verbalized back to CELESTE. Assessment & Plan Loading dose: vancomycin 2750 mg (25 mg/kg) IV X 1 dose then: vancomycin 1700 mg IV every 12 hours (15 mg/kg/dose; population pharmacokinetics suggest a half-life of 11.5 hours with an elimination constant of 0.06 hr-1). Goal peak level estimate: between 35 - 40 mcg/mL. Goal trough level estimate: between 15 - 20 mcg/mL (indication bacteremia) No trough was ordered as empiric dosing was chosen (confirmed with Dr Estrada that this was okay). If dosing is extended please order additional troughs as necessary). Pharmacy will continue to follow and will adjust dose/frequency as necessary. Thank you
[2016-06-27 15:43] VITALS: BP 129/85; PULSE 60; TEMP 36.5; O2SAT 94
[2016-06-27 20:00] VITALS: BP 134/80; PULSE 62; TEMP 36.6; O2SAT 92
[2016-06-27] MEDS: NORTRIPTYLINE HCL 25 MG CAP PO SCH (20:23)
[2016-06-27] MEDS: SIMVASTATIN 40 MG TAB PO SCH (20:23)
[2016-06-27] MEDS: VANCOMYCIN INJ 1,700 MG in SODIUM CHLORIDE 0.9% 500ML 500 ML IV SCH (22:04)
[2016-06-27 23:30] VITALS: BP 138/75; PULSE 62; TEMP 36.9; O2SAT 94
[2016-06-28] VITALS (8 sets, daily range): BP systolic 142–157; BP diastolic 85–94; PULSE 54–63; TEMP 36.3–36.9; O2SAT 92–96
[2016-06-28] MEDS: ONDANSETRON INJ 2 MG/ML 2 ML VIAL IV PRN ×3 (02:25→15:36)
[2016-06-28] MEDS: MoRPHine SULFATE 2 MG/ML CARP IV PRN ×4 (02:25→18:46)
[2016-06-28] MEDS: SODIUM CHLORIDE 0.9% 1000ML 1,000 ML IV SCH ×2 (04:59→13:28)
[2016-06-28] MEDS ORDERED: CEFTRIAXONE SOD INJ 1 GM in DEXTROSE 5% ADD-VANTAGE 50ML 50 ML IV SCH (07:00)
[2016-06-28 07:04] LABS: BASO % 0.6 %; BASO ABS # 0.03 K/uL (0-0.2); COMPLETE YES; EOS % 4.9 %; HEMATOCRIT 38.3 % (42-52); IG% 0.4 %; LYMPH ABS # 1.59 K/uL (1.2-3.4); MEAN CELL VOLUME 88.2 fL (80-100); MEAN CORPUSCULAR HEMOGLOBIN 29.7 pg (25-34); MEAN CORPUSCULAR HGB CONC 33.7 g/dl (32-36); MEAN PLATELET VOLUME 9.9 fL (7.4-10.4); MONO % 8.7 %; NEUT % 55.4 %; PLATELET COUNT 178 K/uL (130-400); RED BLOOD COUNT 4.34 M/uL (4.7-6.1)
[2016-06-28] MEDS: ACETAMINOPHEN 325 MG TAB PO PRN ×2 (07:20→14:40)
[2016-06-28 07:47] LABS: BUN/CREATININE RATIO 9.8 (10-20); CALCIUM 8.6 mg/dl (8.5-10.1); CREATININE 1.2 mg/dl (0.60-1.40); MAGNESIUM 2.3 mg/dl (1.8-2.4); POTASSIUM 4.1 mmol/L (3.5-5.1)
[2016-06-28 07:49] LABS: ESTIMATED AVERAGE GLUCOSE 174 mg/dl; HA1C FLAG Normal (Normal)
[2016-06-28] MEDS: PREGABALIN 100 MG CAP PO SCH ×2 (08:06→20:47)
[2016-06-28] MEDS: CHOLECALCIFEROL 1000 INTER.UNIT TAB PO SCH (08:07)
[2016-06-28] MEDS: PANTOprazole SOD 40 MG TAB PO SCH (08:07)
[2016-06-28] MEDS: INSULIN ASPART 100 UNITS/ML 3 ML PEN SC SCH ×4 (08:07→20:41)
[2016-06-28] MEDS: ASPIRIN 81 MG ECTAB PO SCH (08:07)
[2016-06-28] MEDS: LISINOPRIL 5 MG TAB PO SCH (08:07)
[2016-06-28] MEDS: INSULIN GLARGINE SOLOSTAR 100 UNITS/ML 3 ML PEN SC SCH (08:13)
--- NOTE | 2016-06-28 09:17 | DIAGNOSTIC IMAGING REPORT ---
EXAMINATION: RENAL ULTRASOUND CLINICAL HISTORY: Abnormal CT scan with perinephric infiltrates COMPARISON STUDY: CT scan dated 06/26/2016 FINDINGS: The right kidney measures 9.3 cm. The left kidney measures 11.4 cm. There is no evidence of hydronephrosis. There are no renal masses. No bladder abnormalities are visualized. Bilateral ureteral jets were visualized. IMPRESSION : Normal renal ultrasound. Electronically signed by: Chris Hayes M.D. 06/28/2016 9:15 AM Dictated Date/Time: 06/28/2016 9:13 AM
[2016-06-28] MEDS: VANCOMYCIN INJ 1,700 MG in SODIUM CHLORIDE 0.9% 500ML 500 ML IV SCH ×2 (09:48→21:16)
--- NOTE | 2016-06-28 18:28 | Progress Note ---
Internal Med Progress Note Date of Service: Jun 28, 2016. Provider Documentation: SUBJECTIVE: Resting comfortably still has abdominal discomfort says till has some diarrhea afebrile ok to advance diet OBJECTIVE: Vital Signs-as noted below Exam: General-alert and oriented x 3 ENT-normal hearing Neck-no neck masses Lungs-cta b/l no wheezing no crackles Heart-s1 and s2 heard regular rate and rhythm no murmurs' Abdomen-soft bowel sounds present lower abdominal discomfort no distension Extremities-no edema no erythema Neuro-alert and awake moves extremities Lab data as noted below. ASSESSMENT & PLAN: This is a 66-year-old male presents with recent fever and abdominal pain. Fever. Currently afebrile. One of the blood cultures drawn on 06/25/16 was positive for gm positive cocci but final cx seems contamination repeat blood cx pending empirically on iv vancomycin and Rocephin. will d/c Rocephin will f/u repeat cx 2. Abdominal pain and diarrhea. CAT scan with contrast done yin ER on 06/26/16 showed bilateral mild perinephric infiltrates, otherwise negative study. abdominal x ray and renal u/s unremarkable UA negative. Will stop Rocephin. Mostly viral gastroenteritis. 3. Diabetes. Hold home oral p.o. meds. Continue his Lantus and place him on insulin sliding scale. Monitor his blood sugars. 4. Hypertension. Continue his lisinopril. 5. Hyperlipidemia. Continue statin. 6. Chronic obstructive pulmonary disease, currently stable. 7. Deep vein thrombosis prophylaxis, sequential compression devices and TEDs for now. DISPOSITION If stable will d/c in am. Vital Signs: Date Time Temp Pulse Resp B/P Pulse Ox O2 Delivery O2 Flow Rate FiO2 06/28/16 17:00 36.5 54 20 154/87 95 06/28/16 16:00 96 Room Air 06/28/16 12:00 Room Air 06/28/16 11:42 36.6 54 16 157/89 96 Room Air 06/28/16 08:00 Room Air 06/28/16 07:45 36.4 57 16 157/85 95 Room Air 06/28/16 04:00 Room Air 06/28/16 04:00 36.9 57 20 142/90 95 Room Air 06/28/16 00:00 Room Air 06/27/16 23:30 36.9 62 20 138/75 94 Room Air 06/27/16 20:00 Room Air 06/27/16 20:00 36.6 62 20 134/80 92 Room Air Lab Results: Results Past 24 Hours Test 06/27/16 19:53 06/28/16 06:16 06/28/16 07:08 06/28/16 11:15 Range/Units Bedside Glucose 131 88 79 70-99 mg/dl White Blood Count 5.30 4.8-10.8 K/uL Red Blood Count 4.34 4.7-6.1 M/uL Hemoglobin 12.9 14.0-18.0 g/dL Hematocrit 38.3 42-52 % Mean Corpuscular Volume 88.2 80-100 fL Mean Corpuscular Hemoglobin 29.7 25-34 pg Mean Corpuscular Hemoglobin Concent 33.7 32-36 g/dl Platelet Count 178 130-400 K/uL Mean Platelet Volume 9.9 7.4-10.4 fL Neutrophils (%) (Auto) 55.4 % Lymphocytes (%) (Auto) 30.0 % Monocytes (%) (Auto) 8.7 % Eosinophils (%) (Auto) 4.9 % Basophils (%) (Auto) 0.6 % Neutrophils # (Auto) 2.94 1.4-6.5 K/uL Lymphocytes # (Auto) 1.59 1.2-3.4 K/uL Monocytes # (Auto) 0.46 0.11-0.59 K/uL Eosinophils # (Auto) 0.26 0-0.5 K/uL Basophils # (Auto) 0.03 0-0.2 K/uL RDW Standard Deviation 46.4 36.4-46.3 fL RDW Coefficient of Variation 14.3 11.5-14.5 % Immature Granulocyte % (Auto) 0.4 % Immature Granulocyte # (Auto) 0.02 0.00-0.02 K/uL Sodium Level 142 136-145 mmol/L Potassium Level 4.1 3.5-5.1 mmol/L Chloride Level 107 98-107 mmol/L Carbon Dioxide Level 29 21-32 mmol/L Anion Gap 6.0 3-11 mmol/L Blood Urea Nitrogen 12 7-18 mg/dl Creatinine 1.20 0.60-1.40 mg/dl Est Creatinine Clear Calc Drug Dose 77.8 ml/min Estimated GFR () 73.6 Estimated GFR (Non- 63.5 BUN/Creatinine Ratio 9.8 10-20 Random Glucose 80 70-99 mg/dl Estimated Average Glucose 174 mg/dl Hemoglobin A1c 7.7 4.5-5.6 % Calcium Level 8.6 8.5-10.1 mg/dl Magnesium Level 2.3 1.8-2.4 mg/dl Test 06/28/16 15:30 06/28/16 15:51 Range/Units Bedside Glucose 89 82 70-99 mg/dl
[2016-06-28 20:14] LABS: INFLUENZA A PCR Neg for Influ A (NEG); INFLUENZA B PCR Neg for Influ B (NEG)
[2016-06-28] MEDS: SIMVASTATIN 40 MG TAB PO SCH (20:47)
[2016-06-28] MEDS ORDERED: ZOLPIDEM TARTRATE 5 MG TAB PO ONE (21:08)
[2016-06-28] MEDS: NORTRIPTYLINE HCL 25 MG CAP PO SCH (21:16)
[2016-06-29] VITALS (12 sets, daily range): BP systolic 121–167; BP diastolic 77–96; PULSE 60–67; TEMP 36.5–36.7; O2SAT 91–97
[2016-06-29] MEDS: SODIUM CHLORIDE 0.9% 1000ML 1,000 ML IV SCH ×3 (01:00→19:48)
[2016-06-29] MEDS: ONDANSETRON INJ 2 MG/ML 2 ML VIAL IV PRN (06:37)
[2016-06-29 08:02] LABS: BASO ABS # 0.05 K/uL (0-0.2); COMPLETE YES; EOS % 4.2 %; HEMATOCRIT 40.2 % (42-52); IG% 0.8 %; LYMPH % 27.4 %; LYMPH ABS # 1.42 K/uL (1.2-3.4); MEAN CELL VOLUME 88.7 fL (80-100); MEAN CORPUSCULAR HEMOGLOBIN 30.7 pg (25-34); MEAN CORPUSCULAR HGB CONC 34.6 g/dl (32-36); MEAN PLATELET VOLUME 10.2 fL (7.4-10.4); MONO % 7.9 %; NEUT % 58.7 %; PLATELET COUNT 190 K/uL (130-400); RED BLOOD COUNT 4.53 M/uL (4.7-6.1); WHITE BLOOD COUNT 5.19 K/uL (4.8-10.8)
[2016-06-29] MEDS: ACETAMINOPHEN 325 MG TAB PO PRN ×2 (08:02→19:06)
[2016-06-29] MEDS: CHOLECALCIFEROL 1000 INTER.UNIT TAB PO SCH (08:03)
[2016-06-29] MEDS: PANTOprazole SOD 40 MG TAB PO SCH (08:03)
[2016-06-29] MEDS: LISINOPRIL 5 MG TAB PO SCH (08:03)
[2016-06-29] MEDS: ASPIRIN 81 MG ECTAB PO SCH (08:03)
[2016-06-29] MEDS: PREGABALIN 100 MG CAP PO SCH ×2 (08:03→20:50)
[2016-06-29] MEDS: INSULIN ASPART 100 UNITS/ML 3 ML PEN SC SCH ×4 (08:07→20:44)
[2016-06-29] MEDS: INSULIN GLARGINE SOLOSTAR 100 UNITS/ML 3 ML PEN SC SCH (08:08)
[2016-06-29] MEDS: MoRPHine SULFATE 2 MG/ML CARP IV PRN (08:11)
[2016-06-29 08:31] LABS: BUN/CREATININE RATIO 9.9 (10-20); CREATININE 1.3 mg/dl (0.60-1.40); MAGNESIUM 2.1 mg/dl (1.8-2.4); POTASSIUM 4.4 mmol/L (3.5-5.1)
[2016-06-29] MEDS ORDERED: VANCOMYCIN INJ 1,700 MG in SODIUM CHLORIDE 0.9% 500ML 500 ML IV SCH (11:00)
--- NOTE | 2016-06-29 11:01 | Pharmacy Progress Note ---
Pharmacy Antibiotic Prog Note Date of Service: Jun 29, 2016. Subjective: The patient is a 66 year old male admitted on Jun 27, 2016 at 08:19 with a positive blood culture from 06/25/16 (1 of 2 blood cultures) plus a history of abdominal pain and fatigue. The patient is currently receiving Vancomycin 1700 mg IV every 12 hours. The patient is currently on day # 3 of Vancomycin IV therapy. Objective: Height (Feet): 5 Height (Inches): 10.00 Weight (Kilograms): 110.400 Lab Results (24hrs): Laboratory Tests Test 06/29/16 07:22 BUN/Creatinine Ratio 9.9 Blood Urea Nitrogen 13 mg/dl Creatinine 1.30 mg/dl White Blood Count 5.19 K/uL Red Blood Count 4.53 M/uL Hemoglobin 13.9 g/dL Hematocrit 40.2 % Mean Corpuscular Volume 88.7 fL Mean Corpuscular Hemoglobin 30.7 pg Mean Corpuscular Hemoglobin Concent 34.6 g/dl Platelet Count 190 K/uL Mean Platelet Volume 10.2 fL Neutrophils (%) (Auto) 58.7 % Lymphocytes (%) (Auto) 27.4 % Monocytes (%) (Auto) 7.9 % Eosinophils (%) (Auto) 4.2 % Basophils (%) (Auto) 1.0 % Neutrophils # (Auto) 3.05 K/uL Lymphocytes # (Auto) 1.42 K/uL Monocytes # (Auto) 0.41 K/uL Eosinophils # (Auto) 0.22 K/uL Basophils # (Auto) 0.05 K/uL Micro Results: Item Value Date Time Blood Culture - Preliminary Resulted 06/27/16 1115 Blood NO GROWTH TO DATE. Blood Culture - Preliminary Resulted 06/27/16 1110 Blood NO GROWTH TO DATE. Micro Results: RUN DATE: 06/27/16 [facility] LAB PAGE 1 RUN TIME: 908 Specimen Inquiry PATIENT: JANINA MELENDREZ LOC: [facility] # : [id number] AGE/SX: 66/M ROOM: REG : 06/25/[address]: Franki Carr D.O. : 1950 BED: DIS : STATUS: AUDRA OSBORNE TLOC: SPEC #: [id number] JENNIFER: 06/25/16 STATUS: RES REQ #: [id number] RECD: 06/25/16-[address]: Franki Carr D.O. SOURCE: BLOOD ENTR: 06/25/16-14[address] [facility] [address]: Bowen Narayan M.D. [facility]: ORDERED: BLOOD CULTURE COMMENTS: Comments to [employer] SAME TIME DIFFERENT SITES Procedure Result Verified Site BLD CULT Preliminary 06/27/16-0909 Organism 1 COAG NEG STAPH NOT LUGDUNENSIS SENS NO SENSITIVITY TO FOLLOW Phoned Positive Blood Culture Gram Stain Report to [facility] ED on 06/26/16 At 1421 By CELESTE. Results were verbalized back to CELESTE. Recent Pertinent Medications: Item Value Date Time Vancomycin HCl 534 ml @ 200 mls/hr 06/29/16 1100 1700 mg/Sodium Q12H/IV Chloride Assessment & Plan: [age] yo male receiving empiric IV after presenting with abdominal pain and single positive blood culture for coag negative Staph. Per provider note, DC empiric ceftriaxone and continue IV Vancomycin Continue Vancomycin 1700 mg (~15 mg/kg) IV every 12 hours. Goal peak level estimate: between 30 - 40 mcg/mL. Goal trough level estimate: between 15 - 20 mcg/mL. Vancomycin trough level has been ordered for: 06/30/16 prior to the 10 am dose. Pharmacy will continue to follow and will adjust dose/frequency as necessary. Thank you
--- NOTE | 2016-06-29 11:38 | Clinical Documentation Query ---
CLINICAL DOCUMENTATION QUERY 66 year old male who presents to the Emergency Room with complaints of worsening abdominal pain. H&P states history of CKD w/o staging. Documenting the stage of CKD will improve data integrity and will help clarify vague terms such as "renal insufficiency" or "chronic renal failure." In your clinical opinion is this patient being managed for: ( ) CKD stage 2 ( ) Other explanation of clinical findings (Please Explain) ( + ) Unable to determine (Please Define) ( ) Need to Discuss ( ) Not Agree CKD is documented in Chart Creatinine 1.5 in the past Normal now No staging done during this time The medical record reflects the following clinical findings, treatment, and risk factors. Clinical Indicators: BUN 12, Creatinine 1.20, GFR 63.5, Treatment: IVF's, daily PRP's, Risk Factors: Age Please clarify and document your clinical opinion in the progress notes and discharge summary. Terms such as "probable", "suspected", "likely", "questionable", "possible", or "still to be ruled out" are acceptable. IF IN AGREEMENT, YOU MUST DOCUMENT ABOVE DIAGNOSTIC STATEMENT IN DAILY PROGRESS NOTES AND DISCHARGE SUMMARY. This document is not part of the patient's record. Thank You, Arik Gutiérrez, MARTHA [phone]
--- NOTE | 2016-06-29 12:57 | Progress Note ---
Internal Med Progress Note Date of Service: Jun 29, 2016. Provider Documentation: SUBJECTIVE: says still feeling weak tolerated soft diet last night but says today again having lower abdominal pain had normal bowel movement yesterday afebrile no sob OBJECTIVE: Vital Signs-as noted below Exam: General-alert and oriented x 3 ENT-normal hearing Neck-no neck masses Lungs-cta b/l no wheezing no crackles Heart-s1 and s2 heard regular rate and rhythm no murmurs' Abdomen-soft bowel sounds present lower abdominal discomfort no distension Extremities-no edema no erythema Neuro-alert and awake moves extremities Lab data as noted below. ASSESSMENT & PLAN: This is a 66-year-old male presents with recent fever and abdominal pain. Fever. Currently afebrile. One of the blood cultures drawn on 06/25/16 was positive for gm positive cocci but final cx seems contamination repeat blood cx no growth empirically on iv vancomycin and Rocephin. stopped abx stable 2. Abdominal pain and diarrhea. CAT scan with contrast done yin ER on 06/26/16 showed bilateral mild perinephric infiltrates, otherwise negative study. abdominal x ray and renal u/s unremarkable UA negative. Will stop Rocephin. Etiology unclear. will f/u kub for any constipation. 3. Diabetes. Hold home oral p.o. meds. Continue his Lantus and place him on insulin sliding scale. Monitor his blood sugars. 4. Hypertension. Continue his lisinopril. 5. Hyperlipidemia. Continue statin. 6. Chronic obstructive pulmonary disease, currently stable. 7. Deep vein thrombosis prophylaxis, sequential compression devices and TEDs for now. DISPOSITION If stable will d/c in am. Vital Signs: Date Time Temp Pulse Resp B/P Pulse Ox O2 Delivery O2 Flow Rate FiO2 06/29/16 11:18 36.6 61 18 137/77 91 Room Air 06/29/16 09:15 36.5 67 18 157/79 95 Room Air 06/29/16 07:26 96 Room Air 06/29/16 07:21 36.6 60 18 151/85 96 Room Air 06/29/16 04:00 96 Room Air 06/29/16 03:38 36.7 60 20 143/86 96 Room Air 06/28/16 23:54 36.3 63 149/94 92 Room Air 06/28/16 23:54 92 Room Air 06/28/16 20:45 36.9 60 20 152/93 94 Room Air 06/28/16 20:00 96 Room Air 06/28/16 17:00 36.5 54 20 154/87 95 06/28/16 16:00 96 Room Air Lab Results: Results Past 24 Hours Test 06/28/16 15:30 06/28/16 15:51 06/28/16 20:40 06/29/16 07:22 Range/Units Bedside Glucose 89 82 92 70-99 mg/dl White Blood Count 5.19 4.8-10.8 K/uL Red Blood Count 4.53 4.7-6.1 M/uL Hemoglobin 13.9 14.0-18.0 g/dL Hematocrit 40.2 42-52 % Mean Corpuscular Volume 88.7 80-100 fL Mean Corpuscular Hemoglobin 30.7 25-34 pg Mean Corpuscular Hemoglobin Concent 34.6 32-36 g/dl Platelet Count 190 130-400 K/uL Mean Platelet Volume 10.2 7.4-10.4 fL Neutrophils (%) (Auto) 58.7 % Lymphocytes (%) (Auto) 27.4 % Monocytes (%) (Auto) 7.9 % Eosinophils (%) (Auto) 4.2 % Basophils (%) (Auto) 1.0 % Neutrophils # (Auto) 3.05 1.4-6.5 K/uL Lymphocytes # (Auto) 1.42 1.2-3.4 K/uL Monocytes # (Auto) 0.41 0.11-0.59 K/uL Eosinophils # (Auto) 0.22 0-0.5 K/uL Basophils # (Auto) 0.05 0-0.2 K/uL RDW Standard Deviation 45.6 36.4-46.3 fL RDW Coefficient of Variation 14.0 11.5-14.5 % Immature Granulocyte % (Auto) 0.8 % Immature Granulocyte # (Auto) 0.04 0.00-0.02 K/uL Sodium Level 141 136-145 mmol/L Potassium Level 4.4 3.5-5.1 mmol/L Chloride Level 105 98-107 mmol/L Carbon Dioxide Level 29 21-32 mmol/L Anion Gap 7.0 3-11 mmol/L Blood Urea Nitrogen 13 7-18 mg/dl Creatinine 1.30 0.60-1.40 mg/dl Est Creatinine Clear Calc Drug Dose 71.4 ml/min Estimated GFR () 66.8 Estimated GFR (Non- 57.7 BUN/Creatinine Ratio 9.9 10-20 Random Glucose 79 70-99 mg/dl Calcium Level 9.0 8.5-10.1 mg/dl Magnesium Level 2.1 1.8-2.4 mg/dl Test 06/29/16 07:36 06/29/16 11:28 Range/Units Bedside Glucose 77 116 70-99 mg/dl
--- NOTE | 2016-06-29 14:16 | DIAGNOSTIC IMAGING REPORT ---
KUB CLINICAL HISTORY: Abdominal pain. Constipation. COMPARISON STUDY: 06/27/2016 FINDINGS: There is no pathologic bowel dilatation. There is mild to mild fecal retention.. There is a thoracal lumbar scoliosis. There are postsurgical changes present within the lumbar spine. IMPRESSION: Mild fecal retention. No evidence of pathologic bowel dilatation. Electronically signed by: Chris Hayes M.D. 06/29/2016 2:14 PM Dictated Date/Time: 06/29/2016 2:13 PM
[2016-06-29] MEDS: NORTRIPTYLINE HCL 25 MG CAP PO SCH (20:49)
[2016-06-29] MEDS: SIMVASTATIN 40 MG TAB PO SCH (20:50)
[2016-06-29] MEDS ORDERED: ZOLPIDEM TARTRATE 5 MG TAB PO PRN (21:00)
[2016-06-30 04:22] VITALS: BP 169/95; PULSE 59; TEMP 36.6; O2SAT 97
[2016-06-30] MEDS: SODIUM CHLORIDE 0.9% 1000ML 1,000 ML IV SCH (05:50)
[2016-06-30 07:12] VITALS: BP 165/88; PULSE 62; TEMP 36.5; O2SAT 97
[2016-06-30 08:00] VITALS: O2SAT 97
[2016-06-30] MEDS: LISINOPRIL 5 MG TAB PO SCH (08:04)
[2016-06-30] MEDS: PANTOprazole SOD 40 MG TAB PO SCH (08:04)
[2016-06-30] MEDS: ASPIRIN 81 MG ECTAB PO SCH (08:04)
[2016-06-30] MEDS: CHOLECALCIFEROL 1000 INTER.UNIT TAB PO SCH (08:05)
[2016-06-30] MEDS: PREGABALIN 100 MG CAP PO SCH (08:06)
[2016-06-30 08:10] LABS: BASO % 0.9 %; BASO ABS # 0.05 K/uL (0-0.2); COMPLETE YES; EOS % 3.7 %; HEMATOCRIT 42.9 % (42-52); IG% 1.1 %; LYMPH % 24.1 %; LYMPH ABS # 1.29 K/uL (1.2-3.4); MEAN CELL VOLUME 88.3 fL (80-100); MEAN CORPUSCULAR HEMOGLOBIN 30.9 pg (25-34); MEAN PLATELET VOLUME 10.3 fL (7.4-10.4); MONO % 8.2 %; PLATELET COUNT 195 K/uL (130-400); RED BLOOD COUNT 4.86 M/uL (4.7-6.1); WHITE BLOOD COUNT 5.35 K/uL (4.8-10.8)
[2016-06-30] MEDS: INSULIN ASPART 100 UNITS/ML 3 ML PEN SC SCH ×2 (08:10→12:08)
[2016-06-30] MEDS: INSULIN GLARGINE SOLOSTAR 100 UNITS/ML 3 ML PEN SC SCH (08:11)
[2016-06-30 08:40] LABS: BUN/CREATININE RATIO 11.2 (10-20); CREATININE 1.3 mg/dl (0.60-1.40); MAGNESIUM 2.3 mg/dl (1.8-2.4)
[2016-06-30] MEDS ORDERED: VANCOMYCIN TROUGH SCH (10:30)
[2016-06-30 10:47] VITALS: BP 165/88; PULSE 62; TEMP 36.5; O2SAT 97
[2016-06-30 11:36] VITALS: BP 151/98; PULSE 71; TEMP 36.6; O2SAT 94
--- NOTE | 2016-06-30 11:43 | Progress Note ---
Internal Med Progress Note Date of Service: Jun 30, 2016. Provider Documentation: SUBJECTIVE: The patient was seen and examined Feels fine and wants to go home Denies any symptoms Bowel moved OBJECTIVE: Vital Signs-as noted below Exam: General-no distress at rest Eyes-normal ENT-normal Neck-supple Lungs-clear top ausucltate bilaterally Heart-regular,no murmur Abdomen-Benign,no masses,bowel sound present Extremities-no edema Neuro-AAOx3 Lab data as noted below. ASSESSMENT & PLAN: Fever and abdominal pain. Resolved and no evidence of infection identified One of the blood cultures drawn on 06/25/16 was positive for gm positive cocci but final cx seems contamination Repeat blood cx no growth Received empirically on iv vancomycin and Rocephin. stopped abx No more symptoms and remains stable Abdominal pain and diarrhea. CAT scan with contrast done yin ER on 06/26/16 showed bilateral mild perinephric infiltrates, otherwise negative study. KUB-minimal amount of fecal matter -no obstruction Diabetes. Hold home oral p.o. meds. Continue his Lantus and place him on insulin sliding scale. Monitor his blood sugars. CKD is documented in Chart Creatinine 1.5 in the past Normal now No staging done during this time Hypertension. Continue his lisinopril. Controlled now Hyperlipidemia. Continue statin. Chronic obstructive pulmonary disease, currently stable. Deep vein thrombosis prophylaxis, SCDs Increase ambulation DISPOSITION Discharge home today Vital Signs: Date Time Temp Pulse Resp B/P Pulse Ox O2 Delivery O2 Flow Rate FiO2 06/30/16 10:47 36.5 62 18 97 Room Air 06/30/16 08:00 97 Room Air 06/30/16 07:12 36.5 62 18 165/88 97 Room Air 06/30/16 04:22 36.6 59 18 169/95 97 Room Air 06/30/16 04:00 Room Air 06/30/16 00:07 Room Air 06/29/16 22:58 36.5 64 18 167/81 97 Room Air 06/29/16 20:00 95 Room Air 06/29/16 19:10 36.7 61 18 121/79 93 Room Air 06/29/16 16:00 95 Room Air 06/29/16 14:54 36.7 62 18 154/96 95 Room Air 06/29/16 12:00 91 Room Air Lab Results: Results Past 24 Hours Test 06/29/16 16:23 06/29/16 19:55 06/30/16 07:20 06/30/16 07:22 Range/Units Bedside Glucose 79 128 111 70-99 mg/dl White Blood Count 5.35 4.8-10.8 K/uL Red Blood Count 4.86 4.7-6.1 M/uL Hemoglobin 15.0 14.0-18.0 g/dL Hematocrit 42.9 42-52 % Mean Corpuscular Volume 88.3 80-100 fL Mean Corpuscular Hemoglobin 30.9 25-34 pg Mean Corpuscular Hemoglobin Concent 35.0 32-36 g/dl Platelet Count 195 130-400 K/uL Mean Platelet Volume 10.3 7.4-10.4 fL Neutrophils (%) (Auto) 62.0 % Lymphocytes (%) (Auto) 24.1 % Monocytes (%) (Auto) 8.2 % Eosinophils (%) (Auto) 3.7 % Basophils (%) (Auto) 0.9 % Neutrophils # (Auto) 3.31 1.4-6.5 K/uL Lymphocytes # (Auto) 1.29 1.2-3.4 K/uL Monocytes # (Auto) 0.44 0.11-0.59 K/uL Eosinophils # (Auto) 0.20 0-0.5 K/uL Basophils # (Auto) 0.05 0-0.2 K/uL RDW Standard Deviation 45.1 36.4-46.3 fL RDW Coefficient of Variation 13.9 11.5-14.5 % Immature Granulocyte % (Auto) 1.1 % Immature Granulocyte # (Auto) 0.06 0.00-0.02 K/uL Sodium Level 141 136-145 mmol/L Potassium Level 4.0 3.5-5.1 mmol/L Chloride Level 106 98-107 mmol/L Carbon Dioxide Level 28 21-32 mmol/L Anion Gap 7.0 3-11 mmol/L Blood Urea Nitrogen 15 7-18 mg/dl Creatinine 1.30 0.60-1.40 mg/dl Est Creatinine Clear Calc Drug Dose 71.3 ml/min Estimated GFR () 66.8 Estimated GFR (Non- 57.7 BUN/Creatinine Ratio 11.2 10-20 Random Glucose 103 70-99 mg/dl Calcium Level 9.0 8.5-10.1 mg/dl Magnesium Level 2.3 1.8-2.4 mg/dl Test 06/30/16 11:23 Range/Units Bedside Glucose 209 70-99 mg/dl
[2016-06-30 12:00] VITALS: O2SAT 94
--- NOTE | 2016-06-30 13:14 | Discharge Instructions ---
Discharge Instructions Date of Service Jun 30, 2016. Admission Reason for Admission: Bacteremia; Weakness Discharge Discharge Diagnosis / Problem: Fever and Abdominal pain-resolved Discharge Goals Goal(s): Prevent Disease Progression Activity Recommendations Activity Limitations: resume your previous activity . Instructions / Follow-Up Instructions / Follow-Up Dr Narayan on 07/07/16 at 2:35 PM Current Hospital Diet Patient's current hospital diet: Diabetes Type 2 Diet, Low Fiber Diet Discharge Diet Recommended Diet: Diabetes Type 2 Diet Pending Studies Studies pending at discharge: no Laboratory Results Hemoglobin A1c Test 06/28/16 06:16 Range/Units Estimated Average Glucose 174 mg/dl Hemoglobin A1c 7.7 H 4.5-5.6 % Medical Emergencies . Who to Call and When: Medical Emergencies: If at any time you feel your situation is an emergency, please call 911 immediately. . Non-Emergent Contact Non-Emergency issues call your: Primary Care Provider . Past History Medical & Surgical History: (1) Diabetes (2) Peripheral neuropathy (3) HAYDE (obstructive sleep apnea) (4) HTN (hypertension) (5) Diabetic retinopathy (6) S/p removal of rectal stricture (7) S/P tonsillectomy (8) S/P inguinal hernia repair (9) S/P shoulder surgery (10) History of back surgery (11) H/O hemorrhoidectomy (12) Anxiety . "Provider Documentation" section prepared by Kimi Mcnair. VTE Core Measure Inpt VTE Proph given/why not?: SCD's
--- NOTE | 2016-06-30 17:59 | Discharge Summary ---
Discharge Summary Date of Service Jun 30, 2016. Discharge Summary Admission Date: Jun 27, 2016 at 08:19 Discharge Date: Jun 30, 2016 Discharge Disposition: Home Principal Diagnosis: Fever and Abdominal pain-resolved Secondary Diagnoses/Problems: Please see H&P and Hospital Progress note Medication Reconciliation Continued Medications: Aspirin (Aspirin Ec) 81 Mg Tab 81 MG PO DAILY Cholecalciferol (Vitamin D) 5,000 Unit Tab 5000 UNIT PO DAILY Glimepiride (Amaryl) 4 Mg Tab 4 MG PO BIDM, TAB Insulin Glargine (Lantus Solostar) 100 Unit/Ml Inj 72 UNITS SC DAILY, PEN Lisinopril (Zestril) 5 Mg Tab 5 MG PO DAILY, TAB Metformin Hcl (Glucophage) 500 Mg Tab 500 MG PO BID, TAB Nortriptyline (Pamelor) 50 Mg Cap 50 MG PO HS, CAP Omeprazole (Prilosec) 20 Mg Capcr 20 MG PO GMG, CAP Ondasetron Odt (Zofran Odt) 4 Mg Tab 4 MG SL Q6H for Nausea, #15 TAB Pregabalin (Lyrica) 200 Mg Cap 200 MG PO BID, CAP Simvastatin (Zocor) 40 Mg Tab 40 MG PO QPM, TAB Zolpidem Tartrate (Ambien) 5 Mg Tab 5 MG PO HS PRN for Sleep, TAB Discontinued Medications: Cefdinir (Omnicef) 300 Mg Cap 300 MG PO Q12H, #14 CAP Admission Information HPI (per Admitting provider): DATE OF ADMISSION: 06/27/2016 CHIEF COMPLAINT: Fever and abdominal pain. HISTORY OF PRESENT ILLNESS: This is a 66-year-old male with past medical history significant for diabetes, hypertension, hyperlipidemia, COPD, past tobacco abuse, history of diabetic neuropathy, chronic kidney disease, baseline creatinine around 1.3, presents with fever and abdominal pain. The patient says last Tuesday he had nausea, vomiting and chills and fever. He went to see his primary care physician and was sent to the ER, where blood cultures were drawn and his blood workup was negative and he was discharged home and the next day he was was not feeling well when he came to the ER.One of the blood cultures draw the day prior was positive for gm positive cocci. He was francisco having abdominal pain. CT of the abdomen and pelvis was done which shows some nonspecific bilateral perinephric infiltrates. The patient was placed on Omnicef and discharged home, but comes back again because of feeling generalized weakness and increased lower abdominal pain, was nauseous but no vomiting, no diarrhea, no constipation. Normal bowel movement yesterday. Denies any chest pain, no shortness of breath, chronic cough. Has some mild headaches. He has some mild neck pain, but is able to move his neck. Currently, resting comfortably and hemodynamically stable. ALLERGIES: No known drug allergies. PAST MEDICAL HISTORY: As mentioned above. PAST SURGICAL HISTORY: Rectal stricture, foot surgery, appendectomy, hemorrhoidectomy, cataract surgery, carpal tunnel surgery, and back surgery. FAMILY HISTORY: Significant for diabetes. SOCIAL HISTORY: Past tobacco use several years ago. No alcohol and on disability. REVIEW OF SYSTEMS: As per HPI. Rest of review of systems negative. MEDICATIONS: The patient currently on glimepiride 4 mg p.o. b.i.d., metformin 500 mg p.o. b.i.d., Zofran 4 mg p.o. sublingual q. 6 hours p.r.n., Omnicef 300 mg p.o. q. 12 hours, aspirin 81 mg p.o. daily, vitamin D 5000 units p.o. daily, insulin Lantus 72 units daily, lisinopril 5 mg p.o. daily, nortriptyline 50 mg p.o. at bedtime, Omeprazole 20 mg p.o. daily, Lyrica 200 mg p.o. b.i.d., simvastatin 40 mg p.o. q.p.m., Ambien 5 mg p.o. at bedtime p.r.n. PHYSICAL EXAMINATION: GENERAL: The patient is of moderate built, not in distress. VITAL SIGNS: Temperature 36.6, pulse 65, respiratory rate 20, blood pressure 144/92, oxygen 96% room air. HEENT: No pallor, no icterus. Pupils equal, round, and reactive to light. Oral mucosa dry. NECK: No JVD or neck masses, no carotid bruits. CARDIOVASCULAR: S1, S2 heard, regular rate and rhythm, no murmur, no gallop. RESPIRATORY SYSTEM: Normal AP diameter. No accessory muscle use. No wheezing, no crackles. ABDOMEN: Soft, bowel sounds present. Some tenderness in the left lower quadrant and hypogastric region. No guarding, no rigidity. CENTRAL NERVOUS SYSTEM: Cranial nerves II-XII are grossly intact. Nonfocal. EXTREMITIES: No edema, no erythema. LABORATORY DATA: WBC 6.2, hemoglobin 13.8, hematocrit 39.2 platelets 182. Sodium 141, potassium 4.2, chloride 107, CO2 30, BUN 17, creatinine 1.3, serum glucose 151. Lactic acid 0.9, calcium 8.8, total bilirubin 0.3, AST 20, ALT 25, alkaline phosphatase 50. Troponin I less than 0.015. Lipase 110. Urinalysis negative. IMAGING DATA: CT scan of the abdomen and pelvis done with contrast yesterday shows mild asymmetric bilateral perinephric infiltration, and nonspecific findings , no bowel obstruction. Chest x-ray done yesterday on 06/26/2016 - no acute cardiopulmonary findings. EKG shows normal sinus rhythm with sinus arrhythmia at a rate of 61, incomplete bundle branch block, no acute ST changes seen. ASSESSMENT AND PLAN: This is a 66-year-old male presents with recent fever and abdominal pain. Fever. Currently afebrile. The blood cultures done on 06/25/2016 showing gram positive cocci. The patient has generalized weakness. Not feeling good. We will empirically start him on IV vancomycin and IV Rocephin. Urinalysis negative but as the recent CAT scan showed nonspecific perinephric infiltration Will get a renal ultrasound and follow the cultures. Monitor on the tele floor. 2. Abdominal pain. CAT scan with contrast done yesterday showed bilateral mild perinephric infiltrates, otherwise negative study. We will get a abdominal x ray. pain control and monitor with antibiotics as above. 3. Diabetes. Hold home oral p.o. meds. Continue his Lantus and place him on insulin sliding scale. Monitor his blood sugars. 4. Hypertension. Continue his lisinopril. 5. Hyperlipidemia. Continue statin. 6. Chronic obstructive pulmonary disease, currently stable. 7. Deep vein thrombosis prophylaxis, sequential compression devices and TEDs for now. 8. Disposition: Admit to tele floor. Expect to discharge home and follow with his family doctor. Hospital Course Fever and abdominal pain. Resolved and no evidence of infection identified One of the blood cultures drawn on 06/25/16 was positive for gm positive cocci but final cx seems contamination Repeat blood cx no growth Received empirically on iv vancomycin and Rocephin. stopped abx No more symptoms and remains stable Abdominal pain and diarrhea. CAT scan with contrast done yin ER on 06/26/16 showed bilateral mild perinephric infiltrates, otherwise negative study. KUB-minimal amount of fecal matter -no obstruction Diabetes. Hold home oral p.o. meds. Continue his Lantus and place him on insulin sliding scale. Monitor his blood sugars. CKD is documented in Chart Creatinine 1.5 in the past Normal now No staging done during this time Hypertension. Continue his lisinopril. Controlled now Hyperlipidemia. Continue statin. Chronic obstructive pulmonary disease, currently stable. Deep vein thrombosis prophylaxis, SCDs Increase ambulation DISPOSITION Discharge home today Total time spent on discharge =35 minutes This includes examination of the patient, discharge planning, medication reconciliation, and communication with other providers. Discharge Instructions Date of Service Jun 30, 2016. Admission Reason for Admission: Bacteremia; Weakness Discharge Discharge Diagnosis / Problem: Fever and Abdominal pain-resolved Discharge Goals Goal(s): Prevent Disease Progression Activity Recommendations Activity Limitations: resume your previous activity . Instructions / Follow-Up Instructions / Follow-Up Dr Narayan on 07/07/16 at 2:35 PM Current Hospital Diet Patient's current hospital diet: Diabetes Type 2 Diet, Low Fiber Diet Discharge Diet Recommended Diet: Diabetes Type 2 Diet Pending Studies Studies pending at discharge: no Laboratory Results Hemoglobin A1c Test 06/28/16 06:16 Range/Units Estimated Average Glucose 174 mg/dl Hemoglobin A1c 7.7 H 4.5-5.6 % Medical Emergencies . Who to Call and When: Medical Emergencies: If at any time you feel your situation is an emergency, please call 911 immediately. . Non-Emergent Contact Non-Emergency issues call your: Primary Care Provider . Past History Medical & Surgical History: (1) Diabetes (2) Peripheral neuropathy (3) HAYDE (obstructive sleep apnea) (4) HTN (hypertension) (5) Diabetic retinopathy (6) S/p removal of rectal stricture (7) S/P tonsillectomy (8) S/P inguinal hernia repair (9) S/P shoulder surgery (10) History of back surgery (11) H/O hemorrhoidectomy (12) Anxiety . "Provider Documentation" section prepared by Kimi Mcnair. VTE Core Measure Inpt VTE Proph given/why not?: SCD's <Electronically signed by Kimi Mcnair M.D.> Signed: 06/30/16 0343 Signed: Additional Copies To Bowen aNrayan M.D.
== END 2016-06-30 13:39 | disposition home or self-care (01) | DRG 864 ==
LOC: ENRESERVTM → ENRESERVDT → C.EDB 04:52 → C.MED 08:19
PROVIDERS: ADMIT Internal Medicine; ATTEND Internal Medicine
DX: R50.9 Fever, unspecified (principal); I12.9 Hypertensive chronic kidney disease with stage 1 through stage 4 chronic kidney disease, or unspecified chronic kidney disease; E11.319 Type 2 diabetes mellitus with unspecified diabetic retinopathy without macular edema; E78.5 Hyperlipidemia, unspecified; J44.9 Chronic obstructive pulmonary disease, unspecified; Z87.891 Personal history of nicotine dependence; E11.40 Type 2 diabetes mellitus with diabetic neuropathy, unspecified; N18.9 Chronic kidney disease, unspecified; R10.9 Unspecified abdominal pain; Z79.82 Long term (current) use of aspirin; Z79.4 Long term (current) use of insulin; R19.7 Diarrhea, unspecified; G47.33 Obstructive sleep apnea (adult) (pediatric); N40.0 Benign prostatic hyperplasia without lower urinary tract symptoms; N18.2 Chronic kidney disease, stage 2 (mild); E11.9 Type 2 diabetes mellitus without complications; I10 Essential (primary) hypertension; H81.09 Meniere's disease, unspecified ear; K21.9 Gastro-esophageal reflux disease without esophagitis; Z83.3 Family history of diabetes mellitus; Z82.49 Family history of ischemic heart disease and other diseases of the circulatory system; E86.0 Dehydration; R11.2 Nausea with vomiting, unspecified; F32.9 Major depressive disorder, single episode, unspecified; F41.9 Anxiety disorder, unspecified; N25.81 Secondary hyperparathyroidism of renal origin; J43.9 Emphysema, unspecified; Z87.19 Personal history of other diseases of the digestive system; Z98.890 Other specified postprocedural states; Z79.84 Long term (current) use of oral hypoglycemic drugs; Z79.899 Other long term (current) drug therapy; Z80.9 Family history of malignant neoplasm, unspecified

== ENCOUNTER 2016-07-03 22:34 | Emergency (ER) | payer OTHER ==
[~2016-07-03] VITALS: Ht 179.1 cm; Wt 111.0 kg
[~2016-07-03 22:34] MED LIST changes: -CEFD300C2 PO
[2016-07-03 22:49] VITALS: TEMP 36.8; Ht 179.1 cm; Wt 111.0 kg
[2016-07-03] MEDS ORDERED: SODIUM CHLORIDE 0.9% 1000ML 1,000 ML IV STA (23:21)
[2016-07-03] MEDS ORDERED: KETOROLAC TROMETHAMINE 30 MG/ML VIAL IV STA (23:21)
--- NOTE | 2016-07-03 23:25 | EMERGENCY ROOM VISIT NOTE ---
History Report prepared by Jorge: Aren Plummer Under the Supervision of: Dr. Casandra Moreau D.O. First contact with patient: 23:07 Chief Complaint: HEADACHE Stated Complaint: HEADACHE, NO APPETITE, WEAK History of Present Illness The patient is a 66 year old male who presents to the Emergency Room with complaints of a persistent headache that started yesterday. The headache is mostly frontal and is described as a pressure sensation. The patient also complains of some residual abdominal pain and lack of appetite. He is also feeling weak. The patient was recently admitted to the hospital for abdominal pain and fever. The cause of his pain is still unknown. He did not have a headache when he was admitted. The patient had some Gatorade today but admits to feeling dehydrated. He states that he does not have an appetite for fluids. He had an egg sandwich and toast to eat today. The patient lives with his family. He follows up with Dr. Narayan, who he has an appointment with in four days. Source of History: patient Onset: yesterday Position: head Quality: pressure Timing: other (persistent) Associated Symptoms: + abdominal pain, + weakness Review of Systems See HPI for pertinent positives & negatives. A total of 10 systems reviewed and were otherwise negative. Past Medical & Surgical Medical Problems: (1) Anxiety (2) Bacteremia (3) BPH (benign prostatic hypertrophy) (4) CKD (chronic kidney disease), stage II (5) Depression (6) Diabetes (7) Diabetic retinopathy (8) DM type 2 (diabetes mellitus, type 2) (9) Dyslipidemia (10) Emphysema, unspecified (11) GERD (gastroesophageal reflux disease) (12) H/o ischemic colitis (13) H/O ulcerative colitis (14) HTN (hypertension) (15) Hyperparathyroidism, secondary renal (16) Meniere's disease (17) HAYDE (obstructive sleep apnea) (18) Peripheral neuropathy (19) Sepsis (20) Weakness Surgical Problems: (1) H/O hemorrhoidectomy (2) History of back surgery (3) History of carpal tunnel surgery (4) History of cataract surgery (5) S/P inguinal hernia repair (6) S/p removal of rectal stricture (7) S/P shoulder surgery (8) S/P tonsillectomy (9) S/P trigger finger release Family History Cancer FATHER ( of kidney [place]) Diabetes mellitus BROTHER SISTER Heart disease BROTHER ([place] in 40s) Hypertension MOTHER Social History Smoking Status: Former Smoker Alcohol Use: none Drug Use: none Marital Status: Housing Status: lives with family Occupation Status: disabled Current/Historical Medications Scheduled Amoxicillin & Pot Clavulanate (Augmentin 875-125 mg), 875 MG PO BID Aspirin (Aspirin Ec), 81 MG PO DAILY Cholecalciferol (Vitamin D), 5,000 UNIT PO DAILY Glimepiride (Amaryl), 4 MG PO BIDM Insulin Glargine (Lantus Solostar), 72 UNITS SC DAILY Lisinopril (Zestril), 5 MG PO DAILY Metformin Hcl (Glucophage), 500 MG PO BID Nortriptyline (Pamelor), 50 MG PO HS Omeprazole (Prilosec), 20 MG PO GMG Ondasetron Odt (Zofran Odt), 4 MG SL Q6H Pregabalin (Lyrica), 200 MG PO BID Simvastatin (Zocor), 40 MG PO QPM Scheduled PRN Zolpidem Tartrate (Ambien), 5 MG PO HS PRN for Sleep Allergies Coded Allergies: No Known Allergies (Unverified , 07/03/16) Physical Exam Vital Signs Date Time Temp Pulse Resp B/P Pulse Ox O2 Delivery O2 Flow Rate FiO2 07/04/16 02:08 65 18 119/62 97 07/04/16 01:28 67 18 109/74 97 Room Air 07/04/16 00:58 71 16 132/79 94 Room Air 07/04/16 00:16 69 18 125/70 95 Room Air 07/03/16 22:49 36.8 89 20 164/104 94 Room Air Physical Exam HEENT: Head - normocephalic and atraumatic Pupils are equal, round, and reactive to light. Extraocular eye muscles are intact, and sclera are anicteric. Nose - moist nasal mucosa without discharge. Mouth - dry buccal mucosa and tongue. Oropharynx is nonerythematous and there is no tonsillar exudate or edema noted. Neck: Supple; no JVD, nuchal rigidity, cervical lymphadenopathy. Heart: Regular rate and rhythm. There is a normal S1 and S2 with no murmurs, clicks, or gallops appreciated. Lungs: Clear to auscultation bilaterally with no wheezes, rales, or rhonchi. Abdomen: Mildly diffusely tender. Soft, nondistended, with good bowel sounds. There are no palpable pulsatile masses or hepatosplenomegaly. There is no guarding, rigidity, or rebound noted. Extremities: No evidence of cyanosis, clubbing, or edema. There are easily palpable peripheral pulses. Skin: warm and dry with good turgor and no rashes. Medical Decision & Procedures ER Provider Diagnostic Interpretation: Radiology results as stated below per my review and the radiologist's interpretation: CT HEAD: No ICH, mass effect, or edema. Mark white matter differentiation preserved. No evidence of skull fracture. Mild ethmoid air cell mucosal thickening with fluid layering in the left maxillary sinus. Radiologist: Marco Antonio Wood MD. Laboratory Results 07/03/16 23:30 Red Blood Count 4.90, Mean Corpuscular Volume 87.8, Mean Corpuscular Hemoglobin 31.4, Mean Corpuscular Hemoglobin Concent 35.8, Mean Platelet Volume 10.3, Neutrophils (%) (Auto) 67.5, Lymphocytes (%) (Auto) 18.4, Monocytes (%) (Auto) 10.4, Eosinophils (%) (Auto) 2.4, Basophils (%) (Auto) 0.4, Neutrophils # (Auto ) 5.44, Lymphocytes # (Auto) 1.48, Monocytes # (Auto) 0.84, Eosinophils # (Auto ) 0.19, Basophils # (Auto) 0.03 07/03/16 23:30 Test 07/03/16 23:30 07/04/16 00:15 White Blood Count 8.05 K/uL (4.8-10.8) Red Blood Count 4.90 M/uL (4.7-6.1) Hemoglobin 15.4 g/dL (14.0-18.0) Hematocrit 43.0 % (42-52) Mean Corpuscular Volume 87.8 fL (80-100) Mean Corpuscular Hemoglobin 31.4 pg (25-34) Mean Corpuscular Hemoglobin Concent 35.8 g/dl (32-36) Platelet Count 194 K/uL (130-400) Mean Platelet Volume 10.3 fL (7.4-10.4) Neutrophils (%) (Auto) 67.5 % Lymphocytes (%) (Auto) 18.4 % Monocytes (%) (Auto) 10.4 % Eosinophils (%) (Auto) 2.4 % Basophils (%) (Auto) 0.4 % Neutrophils # (Auto) 5.44 K/uL (1.4-6.5) Lymphocytes # (Auto) 1.48 K/uL (1.2-3.4) Monocytes # (Auto) 0.84 K/uL (0.11-0.59) Eosinophils # (Auto) 0.19 K/uL (0-0.5) Basophils # (Auto) 0.03 K/uL (0-0.2) RDW Standard Deviation 45.9 fL (36.4-46.3) RDW Coefficient of Variation 14.4 % (11.5-14.5) Immature Granulocyte % (Auto) 0.9 % Immature Granulocyte # (Auto) 0.07 K/uL (0.00-0.02) Anion Gap 9.0 mmol/L (3-11) Est Creatinine Clear Calc Drug Dose 72.2 ml/min Estimated GFR () 66.8 Estimated GFR (Non- 57.7 BUN/Creatinine Ratio 15.2 (10-20) Calcium Level 9.9 mg/dl (8.5-10.1) Total Bilirubin 0.5 mg/dl (0.2-1) Direct Bilirubin 0.1 mg/dl (0-0.2) Aspartate Amino Transf (AST/SGOT) 10 U/L (15-37) Alanine Aminotransferase (ALT/SGPT) 18 U/L (12-78) Alkaline Phosphatase 71 U/L (45-117) Total Protein 7.0 gm/dl (6.4-8.2) Albumin 3.4 gm/dl (3.4-5.0) Urine Color YELLOW Urine Appearance CLEAR (CLEAR) Urine pH 5.5 (4.5-7.5) Urine Specific [place] 1.017 (1.000-1.030) Urine Protein NEG (NEG) Urine Glucose (UA) NEG (NEG) Urine Ketones NEG (NEG) Urine Occult Blood NEG (NEG) Urine Nitrite NEG (NEG) Urine Bilirubin NEG (NEG) Urine Urobilinogen NEG (NEG) Urine Leukocyte Esterase NEG (NEG) Laboratory results per my review. Medications Administered Medications (Trade) Dose Ordered Sig/Cyndee Route Start Time Stop Time Status Last Admin Dose Admin Sodium Chloride (Nss 1000ml) 1,000 ml @ 999 mls/hr Q1H1M STAT IV 07/03/16 23:21 07/04/16 00:21 DC 07/03/16 23:21 999 MLS/HR Ketorolac Tromethamine (Toradol Inj) 30 mg NOW STAT IV 07/03/16 23:21 07/03/16 23:23 DC 07/03/16 23:21 30 MG Morphine Sulfate (MoRPHine SULFATE INJ) 4 mg NOW STAT IV 07/04/16 00:36 07/04/16 00:38 DC 07/04/16 00:43 4 MG Ondansetron HCl (Zofran Inj) 4 mg NOW STAT IV 07/04/16 00:36 07/04/16 00:38 DC 07/04/16 00:36 4 MG Oxycodone/ Acetaminophen (Percocet 5-325mg Tab) 2 tab NOW ONCE PO 07/04/16 01:45 07/04/16 01:46 DC 07/04/16 01:56 2 TAB Oxycodone/ Acetaminophen (Percocet 5/ 325MG Home Pack) 1 homepack UD ONCE PO 07/04/16 01:45 07/04/16 01:46 DC 07/04/16 01:55 1 HOMEPACK Amoxicillin/ Clavulanate Potassium (Augmentin Tab) 875 mg ONE ONCE PO 07/04/16 01:45 07/04/16 01:46 DC 07/04/16 01:56 875 MG Procedure Medications administered include Toradol IV, NSS IV, Zofran IV, Morphine Sulfate IV, Percocet PO, Augmentin PO. ED Course 2317: Past medical records reviewed. The patient was evaluated in room B7. A complete history and physical exam was performed. IV lock was established. Labs were drawn as above. 2321: Toradol 30 mg IV, NSS 1000 ml @ 99 mls/hr. 0032: The patient's headache is not any better. He will go for CT scanning soon. He will get something more for pain along with PO fluids. His blood pressure came down nicely on its own to a normal reading. 0036: Zofran 4 mg IV, Morphine Sulfate 4 mg IV. 0135: The patient did not have any relief from morphine. He will get Percocet prior to discharge. 0145: Augmentin 875 mg PO, Percocet 5/325 mg PO home pack, Percocet 5/325 mg PO x 2 tabs. Medical Decision The patient is a 66 year old male who presents to the ED with headache. Differential diagnosis includes dehydration, Migraine, sinusitis, renal failure , colitis, malnutrition. Laboratory interpretation: Normal white count, stable H&H, BUN 20, creatinine 1.3, glucose 151, normal LFTS, normal urinalysis. This is a 66 male patient who was just discharged from the hospital after being admitted for abdominal pain. No specific diagnosis was made while he was here in the emergency department. The patient states that he has had no appetite after discharge and had very little to drinking throughout the day today. On physical exam, the patient had extreme dehydration. He was given a liter of crystalloid therapy. He was able to drink clear liquids. He denies any specific abdominal pain but does describe a headache. On CT scan of the brain, there was evidence of left-sided maxillary sinusitis. This could be contributing to the patient's headache. He will be treated with antibiotics. I 've asked him to follow-up with her PCP on Tuesday if the headache persists. He was told to return to the emergency department if he developed any high fevers, neck stiffness or worsening hip pain. Impression Primary Impression: Left maxillary sinusitis Additional Impression: Dehydration Scribe Attestation The scribe's documentation has been prepared under my direction and personally reviewed by me in its entirety. I confirm that the note above accurately reflects all work, treatment, procedures, and medical decision making performed by me. Departure Information Dispostion Home / Self-Care Prescriptions Amoxicillin & Pot Clavulanate (Augmentin 875-125 mg) 1 Tab Tab 875 MG PO BID, #14 TAB Prov: Casandra Moreau D.O. 07/04/16 Referrals Bowen Narayan M.D. (PCP) Forms HOME CARE DOCUMENTATION FORM, IMPORTANT VISIT INFORMATION Patient Instructions Dehydration, ED Sinusitis Abx Tx, My [facility] Additional Instructions Rest Percocet - 1 tab. every 4 hours for pain Otherwise use tylenol or motrin Augmentin - every 12 hours Problem Qualifiers
[2016-07-03 23:40] LABS: BASO % 0.4 %; BASO ABS # 0.03 K/uL (0-0.2); COMPLETE YES; EOS % 2.4 %; IG% 0.9 %; LYMPH % 18.4 %; LYMPH ABS # 1.48 K/uL (1.2-3.4); MEAN CELL VOLUME 87.8 fL (80-100); MEAN CORPUSCULAR HEMOGLOBIN 31.4 pg (25-34); MEAN CORPUSCULAR HGB CONC 35.8 g/dl (32-36); MEAN PLATELET VOLUME 10.3 fL (7.4-10.4); MONO % 10.4 %; NEUT % 67.5 %; PLATELET COUNT 194 K/uL (130-400); WHITE BLOOD COUNT 8.05 K/uL (4.8-10.8)
[2016-07-03 23:58] LABS: BUN/CREATININE RATIO 15.2 (10-20); CALCIUM 9.9 mg/dl (8.5-10.1); CREATININE 1.3 mg/dl (0.60-1.40); POTASSIUM 3.7 mmol/L (3.5-5.1)
[2016-07-04 00:35] LABS: URINE APPEARANCE CLEAR (CLEAR); URINE BILIRUBIN NEG (NEG); URINE COLOR YELLOW; URINE NITRITE NEG (NEG); URINE PH 5.5 (4.5-7.5); URINE SPECIFIC GRAVITY 1.017 (1.000-1.030); UROBILINOGEN NEG (NEG)
[2016-07-04] MEDS ORDERED: ONDANSETRON INJ 2 MG/ML 2 ML VIAL IV STA (00:36)
[2016-07-04] MEDS ORDERED: MoRPHine SULFATE 4 MG/ML 1 ML CARP\\VIAL IV STA (00:36)
[2016-07-04 00:51] LABS: MANUAL MICROSCOPIC REQUIRED? NO; REVIEW REQ? NO
[2016-07-04] MEDS ORDERED: AMOXICILLIN/CLAVULANATE TAB 875 MG TAB PO ONE (01:45)
[2016-07-04] MEDS ORDERED: PERCOCET HOME PACK PO ONE (01:45)
[2016-07-04] MEDS ORDERED: OXYCODONE/ACETAMINOPHEN 5-325 TAB PO ONE (01:45)
[2016-07-04] MEDS ORDERED: AMOX875T PO (01:47)
[2016-07-04 02:08] VITALS: BP 119/62; PULSE 65; O2SAT 97
--- NOTE | 2016-07-04 07:18 | DIAGNOSTIC IMAGING REPORT ---
CT OF THE HEAD WITHOUT CONTRAST CLINICAL HISTORY: Headache. COMPARISON STUDY: No previous studies for comparison. CT DOSE: 614.27 mGy.cm TECHNIQUE: Helical axial images of the head were obtained without IV contrast. Automated exposure control was utilized for the study. FINDINGS: No acute intracranial hemorrhage, midline shift or mass effect is present. Ventricular system is normal. Basilar cisterns are patent. There are no extra-axial collections. Mark-white differentiation is preserved. There are no findings to suggest acute dural sinus thrombosis or acute territorial infarct. There is wall thickening of the left maxillary sinus. There is trace tiny air-fluid level within left maxillary sinus. Mastoid air cells are clear. There are no calvarial abnormalities. IMPRESSION: 1. No acute intracranial findings. 2. Small left maxillary sinus air-fluid level. Electronically signed by: Bo Wynne M.D. 07/04/2016 7:16 AM Dictated Date/Time: 07/04/2016 7:14 AM
== END 2016-07-04 02:09 | disposition home or self-care (01) ==
LOC: C.EDB 22:35
DX: J32.0 Chronic maxillary sinusitis (principal); E86.0 Dehydration; I12.9 Hypertensive chronic kidney disease with stage 1 through stage 4 chronic kidney disease, or unspecified chronic kidney disease; N18.2 Chronic kidney disease, stage 2 (mild); E11.319 Type 2 diabetes mellitus with unspecified diabetic retinopathy without macular edema; E78.5 Hyperlipidemia, unspecified; K21.9 Gastro-esophageal reflux disease without esophagitis; J43.9 Emphysema, unspecified; N25.81 Secondary hyperparathyroidism of renal origin; G47.33 Obstructive sleep apnea (adult) (pediatric); G62.9 Polyneuropathy, unspecified; F41.9 Anxiety disorder, unspecified; F32.9 Major depressive disorder, single episode, unspecified; Z98.890 Other specified postprocedural states; Z87.891 Personal history of nicotine dependence; Z79.82 Long term (current) use of aspirin; Z79.84 Long term (current) use of oral hypoglycemic drugs; Z79.4 Long term (current) use of insulin; Z79.899 Other long term (current) drug therapy

== ENCOUNTER → 2016-08-29 | Outpatient (CLI) | payer OTHER ==
--- NOTE | 2016-08-30 04:36 | SPLIT NIGHT TECHNICIAN REPORT ---
[facility] Split Night Polysomnogram - Toe Closing Machine Tender Report Study date: 08/29/2016 Referring Physician: Barbara Gaitan Name: JANINA MELENDREZ Toe Closing Machine Tender: LUISA Ramirez. Date of : 1950 Height: 66 years, Height 5' 11" Sex: Male Weight: 242 lbs Age: 66 Neck Circum: 19.75inches BMI: Medications: 33.75 Lantus Solostar 100unit/ml, Zofran 4mg, Ambien 10mg, Nortriptyline 50mg, Lyrica 200mg, Glucophage 500mg, Zocor 40mg, Amaryl 4mg, Prilosec 20mg, Prinivil 5mg, Vit D3, ASA 81mg Patient History Study started on room air with no ETCO2 monitoring in room #8. 66 yr old male here tonight for a possible split psg. He complains of difficulty falling asleep and staying asleep. He was diagnosed with HAYDE in 2008 with an AHI of 18.5. He had a brief trial of cpap but discontinued use. His ESS=16/24. Neck circ=19.75inches. Parameters Monitored NPSG: E1-M2, E2-M1, Fp1-M2, Fp2-M1, F3-M2, F4-M2, F4-M1, C3-M2, C4-M2, C4-M1, O1-M2, O2-M2, O2-M1, T3-M2, T4-M1, P3-M2, P4-M1, CHIN1, CHIN2, HR, EKG, Legs, PFLOW, SNOR, FLOW, CFLOW, Tidal Volume, THOR, ABDO, SpO2, PLTH, CPRESS, ETCO2 Wave, ETCO2, pH SLEEP SUMMARY DATA DIAGNOSTIC TREATMENT Lights Out: 8:40:27 PM 11:37:57 PM Lights On: 11:27:27 PM 4:06:27 AM Total Recording Time (TRT): 167.0 min. 268.5 min. Total Sleep Time (TST): 122.5 min. 198.0 min. NREM Time: 122.5 min. 182.0 min. REM Time: 0.0 min. 16.0 min. Sleep Period Time (SPT): 146.0 min. 248.0 min. Sleep Efficiency (SE): 73 % 74 % Sleep Latency: 21.0 min. 4.5 min. Arousal Index: 40.2 14.5 PAP Treatment Levels: 4, 5, 6, 8, 10, 12, 14, 16, 20/16 * Optimal Pressure(s) SLEEP STAGING DATA DIAGNOSTIC TREATMENT Duration (min) TST % Duration (min) TST % Stage Wake: 44.5 min. -- 70.5 min. -- WASO: 23.5 min. -- 50.0 min. -- NREM: 122.5 min. 100 % 182.0 min. 92 % Stage N1: 11.5 min. 9 % 14.5 min. 7 % Stage N2: 100.0 min. 82 % 167.5 min. 85 % Stage N3: 11.0 min. 9 % 0.0 min. 0 % REM: 0.0 min. 0 % 16.0 min. 8 % POSITIONAL DATA Event Count Index Event Count Index Supine: 121 84 78 37.2 Supine NREM: 121 83.6 71 37.4 Supine REM: N/A N/A 7 35 Non-Supine: 0 0.0 5 4.2 Non-Supine NREM: 0 0.0 5 4.4 Non-Supine REM: N/A N/A 0 0.0 AROUSAL SUMMARY DATA: Event Count Index Event Count Index Apnea Arousals: 47 34.3 29 12.1 Hypopnea Arousals: 32 15.7 15 4.5 Snore Arousals: 5 2.4 0 0.0 PLM Arousals: 1 0.5 6 1.8 Non-Specific Arousals: 2 1.0 1 0.3 Total Arousals: 82 40.2 48 14.5 MYOCLONUS (PLM) Event Count Index Event Count Index PLM: 22 10.8 374 113.3 PLM AROUSAL: 1 0.5 6 1.8 PLM W/O AROUSAL 22 10.8 368 111.5 PLM W/RESP EVENT 1 0.0 21 0.0 MYOCLONUS (PLM) Event Count Index Event Count Index LM: 0 24.5 55 16.7 LM AROUSAL: 0 0.0 1 0.3 LM W/O AROUSAL LM W/RESP EVENT LM NON SPECIFIC 46 22.5 389 117.9 HEART RATE DATA DIAGNOSTIC TREATMENT Sleep (bpm): 64 64 REM (bpm): N/A 88 NREM (bpm): 90 92 Tachycardia Count: 0 0 Tachycardia Duration: 0.00 0 Bradycardia Count: 0 0 Bradycardia Duration: 0.00 0 DIAGNOSTIC PORTION TREATMENT PORTION RESPIRATORY DATA Event Count Index Event Count Index AHI: -- 59.3 -- 25.2 RDI: -- 59.3 -- 25 Obstructive Apnea: 69 33.8 36 10.9 Central Apnea: 0 0.0 2 0.6 Mixed Apnea: 1 0.5 2 0.6 Hypopnea: 51 25.0 43 13.0 RERA: 0 0.0 0 0.0 Total Apneas: 70 34.3 40 12.1 RESPIRATORY DATA REM NREM SLEEP REM NREM SLEEP Supine Position: Obstructive Apneas: N/A 69 69 1 34 35 Central Apneas: N/A 0 0 0 2 2 Mixed Apneas: N/A 1 1 0 2 2 Hypopneas: N/A 51 51 6 33 39 RERA N/A 0 0 0 0 0 Total Supine Events: N/A 121 121 7 71 78 Supine AHI: N/A 83.6 84 35 37.4 37.2 Supine RDI: N/A 83.6 83.6 35.0 37.4 37.2 REM NREM SLEEP REM NREM SLEEP Non-Supine Position: Obstructive Apneas: N/A 0 0 0 1 1 Central Apneas: N/A 0 0 0 0 0 Mixed Apneas: N/A 0 0 0 0 0 Hypopneas: N/A 0 0 0 4 4 RERA N/A 0 0 0 0 0 Total Supine Events: N/A 0 0 0 5 5 Supine AHI: N/A 0.0 0.0 0.0 4.4 4.2 Supine RDI: N/A 0.0 0.0 0.0 4.4 4.2 OXYGEN DESTAURATION DATA: Event Count Index Event Count Index REM Desaturations: N/A N/A 3 11.3 NREM Desaturations: 132 64.7 69 22.7 SNORE DATA DIAGNOSTIC TREATMENT Snore Time: 27.9 11:42:27 PM Snore TST%: 11 4 Snore Arousal Count: 5 0 Snore Arousal Index: 2.4 0.0 Desaturation Event Summary: Minimum %SpO2 Event Count Mean/Min/Max Duration(sec.) Desaturation Index % Time In Bed > 90 218 26.6 / 7.3 / 60.0 48.8 67.7 86 - 90 24 24.1 / 10.5 / 48.0 14.0 25.9 81 - 85 0 N/A 0.0 5.6 76 - 80 0 N/A 0.0 0.7 71 - 75 0 N/A 0.0 0.1 66 - 70 0 N/A 0.0 0.0 61 - 65 0 N/A 0.0 0.0 56 - 60 0 N/A 0.0 0.0 51 - 55 0 N/A 0.0 0.0 < 50 0 N/A 0.0 0.0 OXYGEN SATURATION DATA DIAGNOSTIC TREATMENT SpO2 Mean Sleep: 90 % 92 % SpO2 Mean REM: N/A % 88 % SpO2 Mean NREM: 90 % 92 % SpO2 Minimum Sleep: 76 % 73 % SpO2 Minimum REM: N/A % 73 % SpO2 Minimum NREM: 76 % 79 % Time Below 90% (TST): 47.6 37.1 Time Below 88% (TST): 28.1 18.3 Total REM NREM Awake <50% 0.0 min. 0.0 min. 0.0 min. 0.0 min. 51 - 60% 0.0 min. 0.0 min. 0.0 min. 0.0 min. 61 - 70% 0.0 min. 0.0 min. 0.0 min. 0.0 min. 71 - 80% 3.0 min. 1.0 min. 1.7 min. 0.2 min. 81 - 90% 124.9 min. 12.4 min. 94.1 min. 18.3 min. 91 - 100% 267.9 min. 2.6 min. 207.3 min. 58.1 min. Average 91 88 91 92 Minimum SpO2 73 73 76 78 Desaturation Event Index 31.0 11.3 39.6 12.0 # Desat. Events below 89% 194 2 178 14 Time(%) with Saturation below 89% 17.8 1.9 14.4 1.5 Time(min.) with Saturation below 89% 70.6 7.7 57.1 5.9 Recording Toe Closing Machine Tender Comments: Mr. Melendrez slept in the right and supine positions. No cardiac arrhythmia noted. Some limb movements were noted. No bruxism noted. Snoring was noted and scored as a 3 on a scale of 1 through 5. (0=no snoring, 5=snoring loud enough to be heard through a closed door or down the mai way) At 11:38pm, he had met specific Split-Night criteria during the diagnostic portion of this study. CPAP was initiated at +4 CMH2O and up-titrated to a level of +[id number] and then switched to Bi-Pap ending with a setting of IPAP+20 CMH2O and EPAP +16 CMH2O. He woke up around 4am and wanted to end the study. An optimal pressure was not obtained. A medium Simplus full face mask by Monica was used during titration. He used the restroom 5 times during the night. He stated that he slept about the same as usual. The final report will be interpreted and signed by a sleep physician. The completed physician report will then be placed in the patient medical record. Therapy Event: Therapy (cm H20) 0 4 5 6 8 10 12 14 16 20/16 Total Time at Pressure (min.) 167.0 7.2 17.0 11.8 12.0 26.3 15.2 115.2 13.4 50.3 TST at Pressure (min.) 122.5 1.5 15.8 9.8 11.0 26.3 15.2 90.2 13.4 14.8 # Periods 1 1 1 1 1 1 1 1 1 1 Sleep Onset (min.) 21.0 4.5 1.3 0.0 0.0 0.0 0.0 0.0 0.0 0.0 REM Onset (min.) N/A N/A 14.8 0.0 N/A N/A N/A N/A 4.7 0.0 Sleep Efficiency % 73 20 92 83 91 100 100 78 100 29 Wakefulness (%) 26.6 79.3 7.4 16.9 8.3 0.0 0.0 21.7 0.0 70.6 Wakefulness (min.) 44.5 5.7 1.3 2.0 1.0 0.0 0.0 25.0 0.0 35.5 NREM 1 (%) 6.9 20.7 2.9 16.9 12.5 9.5 6.6 2.2 3.7 5.0 NREM 1 (min.) 11.5 1.5 0.5 2.0 1.5 2.5 1.0 2.5 0.5 2.5 NREM 2 (%) 59.9 0.0 76.4 51.5 79.1 90.5 93.4 76.1 31.4 17.9 NREM 2 (min.) 100.0 0.0 13.0 6.1 9.5 23.8 14.2 87.7 4.2 9.0 NREM 3 (%) 6.6 0.0 0.0 0.0 0.0 0.0 0.0 0.0 0.0 0.0 NREM 3 (min.) 11.0 0.0 0.0 0.0 0.0 0.0 0.0 0.0 0.0 0.0 REM (%) 0.0 0.0 13.3 14.7 0.0 0.0 0.0 0.0 64.8 6.5 REM (min.) 0.0 0.0 2.3 1.7 0.0 0.0 0.0 0.0 8.7 3.3 # Arousals 82 0 0 4 5 17 10 9 2 1 Arousal Index 40.2 0.0 0.0 24.4 27.3 38.8 39.4 6.0 8.9 4.1 # Snore 920 4 31 33 34 34 15 31 15 9 Snore Index 450.6 160.0 118.1 201.0 185.7 77.7 59.0 20.6 67.0 36.5 AHI 59.3 120.0 11.4 67.0 76.5 48.0 31.5 10.0 22.3 12.2 AHI Supine 83.6 120.0 N/A 77.3 76.5 48.0 31.5 23.4 22.3 12.2 AHI Non-Supine 0.0 N/A 11.4 28.7 N/A N/A N/A 1.1 N/A N/A NREM AHI 59.3 120.0 13.3 81.4 76.5 48.0 31.5 10.0 0.0 5.2 REM AHI N/A N/A 0.0 0.0 N/A N/A N/A N/A 34.4 36.5 RDI 59.3 120.0 11.4 67.0 76.5 48.0 31.5 10.0 22.3 12.2 # Obstructive 69 2 0 5 6 10 5 7 0 1 # Central Ap 0 0 0 0 0 0 0 1 0 1 # Mixed 1 0 0 0 0 1 1 0 0 0 # Hypopneas 51 1 3 6 8 10 2 7 5 1 RERAS 0 0 0 0 0 0 0 0 0 0 Total Respiratory Events 121 3 3 11 14 21 8 15 5 3 Time Below SpO2 89.00% (min.) 37.9 0.0 3.4 2.3 2.2 5.1 2.2 4.5 5.3 1.9 Mean NREM SpO2 (%) 90 94 90 92 91 92 93 92 91 93 Mean REM SpO2 (%) N/A N/A 89 89 N/A N/A N/A N/A 87 86 Mean Sleep SpO2 (%) 90 94 90 91 91 92 93 92 89 91 Min NREM SpO2 (%) 76 89 87 83 83 79 82 83 81 87 Min REM SpO2 (%) N/A N/A 87 87 N/A N/A N/A N/A 73 73 Position Supine (min.) 86.9 1.5 0.0 7.8 11.0 26.3 15.2 35.8 13.4 14.8 Position Non-supine (min.) 35.6 0.0 15.8 2.1 0.0 0.0 0.0 54.4 0.0 0.0 LM Index Sleep 35.3 120.0 3.8 48.7 98.3 230.8 212.5 154.3 40.2 12.2 LM Index NREM 35.3 120.0 4.4 59.2 98.3 230.8 212.5 154.3 76.2 5.2 LM Index REM N/A N/A 0.0 0.0 N/A N/A N/A N/A 20.7 36.5 Mean Heart Rate (bpm) 64 66 66 65 63 62 61 64 71 68 Min Heart Rate (bpm) 33 64 63 59 58 56 56 57 66 63
--- NOTE | 2016-09-07 14:09 | POLYSOMNOGRAPH REPORT ---
REFERRING PERSON: Dr. Darcie Reese. WAREHOUSE DIRECTOR: Chanelle Herman. Mr. Mcgarry is a 66-year-old male who in 2008 was diagnosed with moderately severe sleep apnea and an AHI of 18.5. He had a brief trial of CPAP at that time but discontinued use. He returns to the sleep lab to see if his apnea still exist. His [place] Sleepiness Scale score on the evening of this study is 16. BMI is 33.75. Following the technical and digital specifications of the [place] [employer] (AASM) a standard diagnostic polysomnogram was performed monitoring EEG, EOG, EMG (chin and leg deviations), oxygen saturation, body position, digital video, respiratory effort and airflow.? The sleep Stage and event scoring was based on the AASM Manual for the Scoring of Sleep and Associated Events 2007 edition.? Apneas are defined as a drop in the peak thermal sensor excursion by >90% of baseline for at least 10 seconds.? Hypopneas were scored using the 4% oxygen desaturation rule (4A-[employer]) and a decrease in the nasal pressure excursions by >30% of baseline for at least 10 seconds.? Respiratory effort-related arousal (RERA's) is defined as a sequence of breaths lasting at least 10 seconds characterized by increasing respiratory effort or flattening of the nasal pressure waveform leading to an arousal from sleep when the sequence of breaths does not meet criteria for an apnea or hypopnea.? Apnea Hypopnea index (AHI) is defined as the number of apneas and hypopneas occurring in an hour of sleep.? Respiratory disturbance index (RDI) is defined as the number of apneas, hypopneas, and RERA's occurring in an hour of sleep. Mr. Mcgarry did in fact qualify for a split night sleep study. He was observed for 122.5 minutes of recorded time. During that time, he had 9% N1 sleep, 82% N2 sleep and 9% N3 sleep. There were 82 arousals from sleep. Two of these arousals were nonspecific, 1 was due to periodic limb movements, 5 due to snoring and the remainder were due to respiratory events. There were 22 periodic limb movements during observation, one of which resulted in arousals. Mean saturation during the diagnostic portion of this test was 90%, with desaturations during non-REM sleep to 76%. There were 69 obstructive apneas, no central apneas and 1 mixed apnea. There were 51 hypopnea. Pretreatment apnea-hypopnea index was 59.3 consistent with very severe sleep apnea. Therefore, at 11:30 a.m., this patient was started on CPAP therapy. He was titrated over the course of the night on a CPAP pressure of 4 to a CPAP pressure of 16. A medium Simplus full facemask by Maddie was used for this titration. At a pressure of 16 he was then switched to bilevel therapy for some continued respiratory events. Unfortunately, he woke shortly after being placed on this pressure. He was observed on for 14.8 minutes of sleep, 3.3 of those minutes was spent in REM sleep. AHI and RDI on this pressure were 12.2 as he had 3 respiratory events during the short period of time. Saturations were less than 89 for 1.9 minutes of recorded time on this pressure. IMPRESSION AND PLAN: Successful split night sleep study in this patient with very severe sleep apnea; however, the titration portion of this test was suboptimal. 1. Given these results, I would start this patient on an auto BiPAP with a minimum EPAP of 16 and maximum IPAP pressure of 25. Pressure support can be minimum of 0 and maximum of 4 and a download from this device can be reviewed in 1 month to check compliance, AHI and to determine optimal pressure.
== END | disposition home or self-care (01) ==
LOC: C.NEUR 20:00
PROVIDERS: ATTEND Family Medicine
DX: G47.33 Obstructive sleep apnea (adult) (pediatric) (principal)